=== PATIENT | male | born 1995 | race Caucasian/White ===

== ENCOUNTER 2020-03-09 12:11 | Emergency (ER) | payer SELFPAY ==
[2020-03-09 12:36] VITALS: BP 131/83; PULSE 68; RESP 16; TEMP 36.8; O2SAT 98; BMI 21.2
--- NOTE | 2020-03-09 13:02 | W.ED.ABDPA2 ---
HPI - Abdominal Pain General: Chief Complaint: Abdominal Pain Stated Complaint: poss appendicitis Time Seen by Provider: 03/09/20 13:02 Source: patient Mode of arrival: ambulatory Limitations: no limitations History of Present Illness: HPI narrative: Patient presents with lower abdominal pain radiating into his groin. Patient has a history of hernia repair. Patient also reports some right testicular pain. Patient reports swelling around the right testicle. Patient states he was moving a deep freeze yesterday and strained a lot. Patient has a history of a hernia repair and does not know if he would have we ruptured the hernia or is just sore from moving the freezer unit. elicited complaint: abdominal pain Review of Systems General: Reports: 10 or more systems reviewed and unremarkable except in HPI and below GI: Reports: abdominal pain PFSH ED PFSH: Social History (Updated 03/09/20 @ 11:47 by LEYLA Brothers) Smoking and tobacco status: current every day smoker Alcohol intake: never Physical Exam Const: COMMON NORMALS: no acute distress and patient oriented x3 GENERAL APPEARANCE: cooperative HENMT: COMMON NORMALS: normocephalic and Normal external nose present HEAD & SCALP: normal to inspection and normocephalic NOSE: Normal external nose present MOUTH: Normal oral and palatal mucosa present Eye: GENERAL EYE: appearance normal, both eyes and all related structures Neck/C-Spine: COMMON NORMALS: full ROM Lymph: LYMPHATIC: no lymphadenopathy noted Chest: COMMONS NORMALS: normal inspection of the chest Resp: COMMON NORMALS: normal respiratory effort EFFORT & INSPECTION: Yes able to speak in complete sentences Cardio: COMMON NORMALS: regular rate and regular rhythm RATE: regular rate RHYTHM: regular rhythm GI: AUSCULTATION: Yes normoactive bowel sounds PALPATION: Yes Tenderness to palpation present (GI) (Periumbilical right and left side. None rebound. No guarding.) : COMMON NORMALS: Yes no CVA tenderness BLADDER/KIDNEY EXAM: Yes no CVA tenderness SCROTUM: Yes testes descended bilaterally, Yes Cremasteric reflex present and No scrotal swelling Back/Pelvis: COMMON NORMALS: no CVA tenderness and thoracic and lumbar spine normal to inspection Extremity: COMMON NORMALS: normal to inspection Neuro: COMMON NORMALS: patient oriented x3 and moves all extremities Psych: COMMON NORMALS: mental status grossly normal and cooperative Skin: COMMON NORMALS: no rashes or lesions noted GENERAL SKIN EXAM: no rashes or lesions noted Course Vital Signs: Vital signs: Vital Signs Temperature 98.2 F 03/09/20 12:36 Pulse Rate 68 03/09/20 12:36 Respiratory Rate 16 03/09/20 12:36 Blood Pressure 131/83 03/09/20 12:36 Pulse Oximetry 98 03/09/20 12:36 MDM - Abdominal Pain MDM Narrative: Medical decision making narrative: Patient presents with abdominal pain. On exam abdomen soft with some lower abdomen tenderness. Genital exam was done due to patient's concern of right testicle pain. Notes some abdominal swelling but otherwise normal. Prismatic reflex was intact. Vital signs are normal. Differential diagnosis includes but not limited to appendicitis, hernia, epididymitis, testicular torsion. Laboratory values noted as slight elevation in lipase, normal white blood cell count, BUN of 30. CT exam of abdomen pelvis noted a normal appendix and some small bowel inflammation. Ultrasound of the scrotum noted good testicular flow, small hydrocele to the right testicle, and some epididymal swelling bilaterally. Reviewed exam with patient with recommendations for follow-up regarding small bowel inflammation suggestive of Crohn's, also recommended follow-up with urology for further evaluation of hydrocele if it continues to bother him. Lab Data: Labs: Lab Results 03/09/20 03/09/20 03/09/20 Range/Units 13:37 14:00 14:00 WBC 6.8 (4.0-10.0) 10^3/ uL RBC 5.44 H (4.1-5.3) 10^6/u L Hgb 16.3 (11.7-16.6) g/dL Hct 48.9 (42.0-52.0) % MCV 89.9 (80-94) fL MCH 30.0 (28.0-34.0) pg MCHC 33.3 (30.0-36.0) g/dL RDW 11.8 L (12.1-15.1) % Plt Count 155 (130-400) 10^3/c mm MPV 11.4 H (7.4-10.4) fL Neut % (Auto) 58.8 % Lymph % (Auto) 28.4 % [place] % (Auto) 9.3 % Eos % (Auto) 3.0 % Baso % (Auto) 0.4 % Neut # (Auto) 3.97 (1.8-7.7) 10^3/u L Lymph # (Auto) 1.9 (0.8-4.8) 10^3/u L [place] # (Auto) 0.6 (0.2-0.9) 10^3/u L Eos # (Auto) 0.2 (0.0-0.8) 10^3/u L Baso # (Auto) 0.0 (0.0-0.1) 10^3/u L Nucleated RBC % (a uto) 0 % Nucleated RBCs # 0.0 /100WBC Sodium 137 (136-145) mmol/L Potassium 3.7 (3.5-5.1) mmol/L Chloride 100 (98-107) mmol/L Carbon Dioxide 30 H (22-29) mmol/L Anion Gap 10.7 (5-19) BUN 10 (6-20) mg/dL Creatinine 0.8 (0.7-1.2) mg/dL GFR Calculation 119.8 (90-130) mL/min Glucose 99 (65-115) mg/dL Calculated Osmolal ity 283 L (285-295) mOsm/k g Calcium 9.4 (8.5-10.5) mg/dL Total Bilirubin 0.7 (0.15-1.2) mg/dL AST 15 (0-40) U/L ALT 23 (0-41) U/L Alkaline Phosphata se 74 (40-130) IU/L Total Protein 6.7 (6.6-8.7) g/dL Albumin 4.5 (3.5-5.2) g/dL Globulin 2.2 (1.3-4.6) g/dL Lipase 163 H (13-60) U/L Urine Color Yellow (Yellow) Urine Appearance Clear (CLEAR) Urine pH 7 (5-7) Ur Specific Gravit y 1.005 (1.005-1.030) Urine Protein Neg (Negative) Urine Glucose (UA) Norm (Normal) Urine Ketones Negative (Negative) Urine Blood Neg (Negative) Urine Nitrate Negative (Negative) Urine Bilirubin Neg (Negative) Urine Urobilinogen Norm (Negative) mg/dL Ur Leukocyte Estefania ase Negative (Negative) Discharge Plan Discharge Patient Disposition: Home Clinical Impression: Abdominal pain Qualifiers: Abdominal location: lower abdomen, unspecified Qualified Code(s): R10.30 - Lower abdominal pain, unspecified Condition: Stable Prescriptions: New dicyclomine 10 mg capsule 10 mg PO QID PRN (Reason: abdominal pain) Qty: 30 RF: 0 Discharge Orders: Discharge ED (Routine); Ordered 03/09/20 Ordered By: Layton Dumont Discharge Diet: Advance as tolerated Discharge Activity: Increase activity as tolerated Patient Instructions: Abdominal Pain (ED) Activity Restrictions/Additional Instructions: Drink plenty of fluids. Take medication as directed for discomfort. Activity as tolerated. Follow-up with primary care for recommendations of further evaluation and treatment. Follow-up with urology as needed for evaluation of hydrocele. Return to the emergency department for new concerns. Stand Alone Forms: Work/School Release Coding Level of Care Code ED Labeling Associate for Marcusg Fwd Exam Comprehensive
--- NOTE | 2020-03-09 13:12 | CT_ITS ---
WS: [id number] CT ABDOMEN AND PELVIS WITH CONTRAST HISTORY: RLQ pain, r/o appendicitis TECHNIQUE: Imaging performed of the abdomen and pelvis with IV contrast. Single phase imaging of the abdomen. Coronal and sagittal reformats are submitted. All CT scans at [facility] use at least one of these dose optimization techniques: automated exposure control; mA and/or kV adjustment per patient size (includes targeted exams where dose is matched to clinical indication); or iterativ e reconstruction. IV CONTRAST: Omnipaque 300; 95 mL IV. Oral contrast: No DLP: 211.76 mGy.cm COMPARISON: None available. Lower thorax: Lung bases are clear. Heart is normal size. Small hiatal hernia. Liver/biliary system: Normal size with no intrahepatic dilatation. Gallbladder: Normal. No gallstones or wall thickening. No pericholecystic fluid. Pancreas: Normal. Spleen: Normal. Adrenal glands: Normal. Right kidney: No renal obstruction. Cortical cyst measures 8 mm in the mid kidney. Left kidney: Normal. Aorta: Normal. Lymphadenopathy: None. Free fluid: None. GI tract: Mild hyperemia and fluid distention of the small bowel in the pelvis. Small bowel measures up to 2 cm. There is mild wall thickening and hyperemia involving the distal small bowel extending to the terminal ileum. There is adjacent fibrofatty proliferation in the pelvis. Terminal ileum appears narrowed but not severely stenosed. Normal appendix. Abdominal wall: Unremarkable abdominal wall. No hernia. Pelvis: Nondistended bladder. No free fluid or adenopathy. Bones: Unremarkable. CT/CT abdomen pelvis w con* [id number] IMPRESSION: 1. Normal appendix. 2. Distal small bowel wall hyperemia and fibrofatty proliferation in the pelvi s. Mild soft tissue thickening and narrowing of the terminal ileum. Findings tejada ggesting inflammatory bowel disease such as Crohn's.
--- NOTE | 2020-03-09 13:18 | US_ITS ---
WS: [id number] TESTICULAR ULTRASOUND HISTORY: hx of hernia, right testicular pain COMPARISON: 11/12/2017 TECHNIQUE: Real-time and color Doppler imaging or utilized to perform a testicu lar ultrasound. Right testicle: 4.3 cm x 3.0 cm x 1.7 cm. Normal size and echogenicity. No mass or torsion. Normal color Doppler is present throughout. Systolic and diastolic velocities are both present. Small simple hydrocele. Right epididymis: Normal size epididymis. There is a small spermatocele with a maximum diameter of 2 mm. Engorgement of the pampiniform plexus. Left testicle: 4.2 cm x 2.9 cm x 2.3 cm. Normal size and echogenicity. No mass or torsion. Normal color Doppler is present throughout. Systolic and diastolic velocities are both present. No significant hydrocele. Left epididymis: Small epididymal head cysts or spermatoceles. Mildly prominent pampiniform plexus. No enlargement with Valsalva. US/US scrotum [id number] IMPRESSION: 1. No testicular mass or torsion. 2. Prominent pampiniform plexus but no dilatation with Valsalva. 3. Small bilateral epididymal head cysts or spermatoceles. 4. Small RIGHT hydrocele.
[2020-03-09] MEDS: iohexol 300 mg/mL 100 mL Btl IV (13:45)
[2020-03-09 13:59] LABS: Add Urine Microscopic? NO
[2020-03-09 14:18] LABS: Bilirubin Urine Neg (Negative); Blood Urine Neg (Negative); Glucose Urine UA Norm (Normal); Ketones Urine Negative (Negative); Leukocyte Esterase Urine Negative (Negative); Nitrate Urine Negative (Negative); Protein Urine Neg (Negative); Specific Gravity, Urine 1.005 (1.005-1.030); Urine Appearance Clear (CLEAR); Urine Color Yellow (Yellow); Urobilinogen Urine Norm (Negative); pH Urine 7 (5-7)
[2020-03-09 14:22] LABS: Basophils % 0.4 %; Eosinophils # 0.2 10^3/uL (0.0-0.8); Hematocrit 48.9 % (42.0-52.0); Hemoglobin 16.3 g/dL (11.7-16.6); Lymphocytes # 1.9 10^3/uL (0.8-4.8); Lymphocytes % 28.4 %; Mean Corpuscular HGB Conc 33.3 g/dL (30.0-36.0); Mean Corpuscular Volume 89.9 fL (80-94); Mean Platelet Volume 11.4 fL (7.4-10.4); Monocytes # 0.6 10^3/uL (0.2-0.9); Monocytes % 9.3 %; Neutrophils # 3.97 10^3/uL (1.8-7.7); Neutrophils % 58.8 %; Nucleated Red Blood Cells % 0 %; Platelet Count 155 10^3/cmm (130-400); Red Blood Count 5.44 10^6/uL (4.1-5.3); Red Cell Distribution Width 11.8 % (12.1-15.1); White Blood Count 6.8 10^3/uL (4.0-10.0)
[2020-03-09 14:27] LABS: Alanine Aminotransferase 23 U/L (0-41); Albumin Level 4.5 g/dL (3.5-5.2); Alkaline Phosphatase 74 IU/L (40-130); Anion Gap 10.7 (5-19); Aspartate Amino Transferase 15 U/L (0-40); Blood Urea Nitrogen 10 mg/dL (6-20); Calcium 9.4 mg/dL (8.5-10.5); Carbon Dioxide 30 mmol/L (22-29); Chloride 100 mmol/L (98-107); Globulin 2.2 g/dL (1.3-4.6); Glomerular Filtration Rate 119.8 mL/min (90-130); Glucose 99 mg/dL (65-115); Lipase 163 U/L (13-60); Osmolality Calculated 283 mOsm/kg (285-295); Potassium 3.7 mmol/L (3.5-5.1); Sodium 137 mmol/L (136-145); Total Bilirubin 0.7 mg/dL (0.15-1.2); Total Protein 6.7 g/dL (6.6-8.7)
[2020-03-09] MEDS: dexamethasone 4 mg/mL INJ 8 MG IVP (15:34)
[2020-03-09 15:39] VITALS: BP 124/74; PULSE 68; RESP 18; O2SAT 98
[2020-03-09 15:47] VITALS: BP 124/74; PULSE 68; RESP 18; O2SAT 98
--- NOTE | 2020-03-10 09:29 | DCPLANNER ---
residential property manager had message to speak with patient about getting established with a primary care physician. residential property manager called phone number [phone], unable to speak with patient or leave a voicemail due to patient not accepted calls at this time.
== END 2020-03-09 15:47 | disposition home or self-care (01) ==
PROVIDERS: Emergency Provider Nurse Practitioner Family
DX: R10.30 Lower abdominal pain, unspecified (principal); F17.210 Nicotine dependence, cigarettes, uncomplicated
CPT/HCPCS: 12345; 74177; 76870; 80053; 81003; 83690; 85025; 96374; 99283; J1100; Q9967

== ENCOUNTER 2020-05-14 14:35 | Emergency (ER) | payer SELFPAY ==
--- NOTE | 2020-05-14 14:53 | XRR_ITS ---
PROCEDURE INFORMATION: Exam: XR Abdomen Exam date and time: 05/14/2020 2:54 PM Age: 24 years old Clinical indication: Abdominal pain; Prior surgery; Surgery type: Hernia; Additional info: Abd pain TECHNIQUE: Imaging protocol: XR of the abdomen. Views: Frontal supine view of the abdomen. 1 View. COMPARISON: CT abdomen pelvis w con* [id number] 03/09/2020 1:35 PM FINDINGS: Gastrointestinal tract: Normal. No bowel dilation. Bones/joints: Unremarkable. XR/XR abdomen 1V* [id number] IMPRESSION: No acute findings.
[2020-05-14 15:29] VITALS: BP 135/80; PULSE 55; RESP 18; TEMP 36.8; O2SAT 98; BMI 19.0
[2020-05-14 16:08] VITALS: BP 127/69; PULSE 60; RESP 14; O2SAT 97
[2020-05-14 16:44] LABS: Basophils # 0.1 10^3/uL (0.0-0.1); Basophils % 0.6 %; Eosinophils # 0.2 10^3/uL (0.0-0.8); Eosinophils % 2.4 %; Hemoglobin 16.2 g/dL (11.7-16.6); Lymphocytes # 2.4 10^3/uL (0.8-4.8); Lymphocytes % 28.2 %; Mean Corpuscular HGB Conc 33.8 g/dL (30.0-36.0); Mean Corpuscular Hemoglobin 30.6 pg (28.0-34.0); Mean Corpuscular Volume 90.6 fL (80-94); Mean Platelet Volume 11.3 fL (7.4-10.4); Monocytes # 0.5 10^3/uL (0.2-0.9); Monocytes % 5.9 %; Neutrophils # 5.37 10^3/uL (1.8-7.7); Neutrophils % 62.7 %; Nucleated Red Blood Cells % 0 %; Platelet Count 170 10^3/cmm (130-400); Red Cell Distribution Width 11.9 % (12.1-15.1); White Blood Count 8.6 10^3/uL (4.0-10.0)
[2020-05-14 16:49] LABS: Add Urine Microscopic? NO
[2020-05-14 17:03] LABS: Urine Appearance Clear (CLEAR); Urine Color Yellow (Yellow); pH Urine 8 (5-7)
[2020-05-14 17:04] LABS: Bilirubin Urine Neg (Negative); Blood Urine Neg (Negative); Glucose Urine UA Norm (Normal); Ketones Urine Negative (Negative); Leukocyte Esterase Urine Negative (Negative); Nitrate Urine Negative (Negative); Protein Urine Neg (Negative); Specific Gravity, Urine 1.015 (1.005-1.030); Sulfosalicylic Acid Urine Negative (Negative); Urobilinogen Urine Norm (Negative)
[2020-05-14 17:07] LABS: C Reactive Protein 1.2 mg/L (0.0-4.9)
[2020-05-14 17:08] LABS: Alanine Aminotransferase 17 U/L (0-41); Albumin Level 4.7 g/dL (3.5-5.2); Alkaline Phosphatase 75 IU/L (40-130); Anion Gap 11.6 (5-19); Aspartate Amino Transferase 14 U/L (0-40); Blood Urea Nitrogen 14 mg/dL (6-20); Calcium 9.3 mg/dL (8.5-10.5); Carbon Dioxide 30 mmol/L (22-29); Chloride 103 mmol/L (98-107); Globulin 2.1 g/dL (1.3-4.6); Glomerular Filtration Rate 92.6 mL/min (90-130); Glucose 88 mg/dL (65-115); Lipase 12 U/L (13-60); Osmolality Calculated 292 mOsm/kg (285-295); Potassium 3.6 mmol/L (3.5-5.1); Sodium 141 mmol/L (136-145); Total Bilirubin 0.5 mg/dL (0.15-1.2); Total Protein 6.8 g/dL (6.6-8.7)
--- NOTE | 2020-05-14 17:30 | ED_ITS ---
HPI - Abdominal Pain General: Chief Complaint: Abdominal Pain Stated Complaint: AB PAIN, BLOODY STOOL Time Seen by Provider: 05/14/20 15:45 Source: patient Mode of arrival: ambulatory Limitations: no limitations History of Present Illness: HPI narrative: 24-year-old male patient presents to the emergency department with abdominal pain x2 days. He reports this morning experience blood in his stool x2 episodes. He reports stool was bright red. He reports similar episode of abdominal pain with diarrhea that occurred February 2020; states Crohn's disease was appreciated on CT scan completed at this time. He states was to be referred to a surgeon/specialist due to findings on CT but has not heard from anyone. He reports 2 loose stools today. He reports is mainly here because no one has called him back for follow-up and does not know what to do about his pain. He reports pain is mild today. He reports normal intake of fluids today. MD elicited complaint: abdominal pain Pertinent past history: other (Possible Crohn's) Onset (ago): day(s) (2 days; reports symptoms have persisted on and off x3 months) Pain Consistency: intermittent Severity: mild Quality: cramping and burning Radiation: none Migration to: no migration Exacerbating factors: nothing Relieving factors: nothing Associated Symptoms: Reports change in stool character, GI cramping and hematochezia; Denies bloating, chills, dysuria, fever(s), nausea and vomiting Review of Systems General: Reports: 10 or more systems reviewed and unremarkable except in HPI and below Const: Denies: fever(s), chills, body aches, fatigue, malaise or diaphoresis Eyes: Denies: blurry vision or eye redness ENMT: Denies: throat pain, dental pain or disequilibrium Card: Denies: chest pain, palpitations or irregular heart rhythm Resp: Denies: dyspnea, productive cough, non-productive cough or wheezing GI: Reports: abdominal pain, GI cramping, change in stool character and hematochezia; Denies: nausea, vomiting or bloating : Denies: dysuria Musc: Denies: neck pain, back pain, joint pain, joint warmth or joint stiffness Skin/Breast: Denies: rash or pruritus Neuro: Denies: headache(s), weakness in extremities or behavioral changes Psych: Denies: anxiety or depression Nick/Lymph: Denies: easy bruising PFSH ED PFSH: Social History Smoking and tobacco status: current every day smoker Alcohol intake: never Physical Exam Const: COMMON NORMALS: no acute distress, patient oriented x3, healthy appearing and alert GENERAL APPEARANCE: cooperative, comfortable and well hydrated HENMT: COMMON NORMALS: normocephalic, Normal external nose present and moist oral mucous membranes HEAD & SCALP: normocephalic NOSE: Normal external nose present Eye: COMMON NORMALS: Equal, round and reactive pupils present and EOMs intact bilaterally GENERAL EYE: appearance normal, both eyes and all related structures PUPIL: Yes Equal, round and reactive pupils present Neck/C-Spine: COMMON NORMALS: full ROM and no lymphadenopathy GENERAL: Yes normal visual inspection and Yes trachea midline CERVICAL SPINE: Yes cervical ROM normal Lymph: LYMPHATIC: no lymphadenopathy noted Chest: COMMONS NORMALS: normal inspection of the chest Resp: COMMON NORMALS: normal respiratory effort and clear to auscultation bilaterally AUSCULTATION: clear to auscultation bilaterally Cardio: COMMON NORMALS: regular rhythm, S1 normal heart sound present and S2 normal heart sound present RHYTHM: regular rhythm HEART SOUNDS: S1 normal heart sound present and S2 normal heart sound present GI: COMMON NORMALS: Normal to inspection, nondistended, normoactive bowel sounds present, Soft to palpation and non-tender INSPECTION: Yes normal to inspection, No abdominal wall ecchymosis, No abdominal distension, No central obesity and No visible herniation AUSCULTATION: Yes normoactive bowel sounds PALPATION: Yes Soft to palpation, No Firmness to palpation present (GI), Yes Tenderness to palpation present (GI) (Periumbilical), No Rigid due to palpation and No Abdominal wall crepitus present : COMMON NORMALS: Yes no CVA tenderness BLADDER/KIDNEY EXAM: Yes no CVA tenderness Back/Pelvis: COMMON NORMALS: no CVA tenderness, thoracic and lumbar spine normal to inspection, no thoracic nor lumbar tenderness, thoraco-lumbar ROM normal and straight leg raise negative bilaterally Extremity: COMMON NORMALS: normal to inspection, full ROM, capillary refill normal, no clubbing, cyanosis or edema and no pedal edema GENERAL: Yes normal exam except as noted Neuro: COMMON NORMALS: patient oriented x3 and no focal motor deficits SENSORIUM/ORIENTATION: Yes alert Psych: COMMON NORMALS: mental status grossly normal, Normal thought process present, cooperative, normal affect, speech normal and activity/motor behavior normal APPEARANCE: Yes grossly normal ATTITUDE: Yes calm ACTIVITY/MOTOR BEHAVIOR: Yes appropriate eye contact SPEECH: Yes normal speech THOUGHT PROCESS: Normal thought process present Skin: COMMON NORMALS: no rashes or lesions noted and turgor normal GENERAL SKIN EXAM: no rashes or lesions noted and turgor normal Course Vital Signs: Vital signs: Vital Signs Temperature 98.2 F 05/14/20 15:29 Pulse Rate 60 05/14/20 16:08 Respiratory Rate 14 05/14/20 16:08 Blood Pressure 127/69 05/14/20 16:08 Pulse Oximetry 97 05/14/20 16:08 MDM - Abdominal Pain MDM Narrative: Medical decision making narrative: 24-year-old male patient presents to the emergency department with continued abdominal pain on and off x3 months. Was previously evaluated in the ED for similar symptoms as he experiences today, CT appreciated possible Crohn's, no follow-up completed. He has not exhibited nausea vomiting, Hemoccult stool was negative today. CRP and ESR within normal limits, CBC lipase comprehensive panel without acute abnormalities. Reglan was administered here in the ED along with Pepcid. Patient had reaction to Reglan, developed anxiety with request to immediately leave. Patient was advised to list Reglan as an allergy due to adverse reaction. Verbalized understanding. He declined need for pain medication, certified social workers in health care referral to surgical services for colonoscopy. Differential Diagnosis: Differential diagnosis abdominal pain: Likely abdominal pain, calculus of kidney, constipation and small bowel obstruction Lab Data: Labs: Lab Results 05/14/20 05/14/20 05/14/20 Range/Units 16:15 16:15 16:15 WBC 8.6 (4.0-10.0) 10^3/ uL RBC 5.30 (4.1-5.3) 10^6/u L Hgb 16.2 (11.7-16.6) g/dL Hct 48.0 (42.0-52.0) % MCV 90.6 (80-94) fL MCH 30.6 (28.0-34.0) pg MCHC 33.8 (30.0-36.0) g/dL RDW 11.9 L (12.1-15.1) % Plt Count 170 (130-400) 10^3/c mm MPV 11.3 H (7.4-10.4) fL Neut % (Auto) 62.7 % Lymph % (Auto) 28.2 % [place] % (Auto) 5.9 % Eos % (Auto) 2.4 % Baso % (Auto) 0.6 % Neut # (Auto) 5.37 (1.8-7.7) 10^3/u L Lymph # (Auto) 2.4 (0.8-4.8) 10^3/u L [place] # (Auto) 0.5 (0.2-0.9) 10^3/u L Eos # (Auto) 0.2 (0.0-0.8) 10^3/u L Baso # (Auto) 0.1 (0.0-0.1) 10^3/u L Nucleated RBC % (a uto) 0 % Nucleated RBCs # 0.0 /100WBC ESR 2 (0-10) mm/hr Sodium 141 (136-145) mmol/L Potassium 3.6 (3.5-5.1) mmol/L Chloride 103 (98-107) mmol/L Carbon Dioxide 30 H (22-29) mmol/L Anion Gap 11.6 (5-19) BUN 14 (6-20) mg/dL Creatinine 1.0 (0.7-1.2) mg/dL GFR Calculation 92.6 (90-130) mL/min Glucose 88 (65-115) mg/dL Calculated Osmolal ity 292 (285-295) mOsm/k g Calcium 9.3 (8.5-10.5) mg/dL Total Bilirubin 0.5 (0.15-1.2) mg/dL AST 14 (0-40) U/L ALT 17 (0-41) U/L Alkaline Phosphata se 75 (40-130) IU/L C-Reactive Protein (0.0-4.9) mg/L Total Protein 6.8 (6.6-8.7) g/dL Albumin 4.7 (3.5-5.2) g/dL Globulin 2.1 (1.3-4.6) g/dL Lipase 12 L (13-60) U/L Urine Color (Yellow) Urine Appearance (CLEAR) Urine pH (5-7) Ur Specific Gravit y (1.005-1.030) Urine Protein (Negative) Urine Glucose (UA) (Normal) Urine Ketones (Negative) Urine Blood (Negative) Urine Nitrate (Negative) Urine Bilirubin (Negative) Prot Sulfosalicyli c Acd (Negative) Urine Urobilinogen (Negative) mg/dL Ur Leukocyte Estefania ase (Negative) 05/14/20 05/14/20 Range/Units 16:15 16:42 WBC (4.0-10.0) 10^3/ uL RBC (4.1-5.3) 10^6/u L Hgb (11.7-16.6) g/dL Hct (42.0-52.0) % MCV (80-94) fL MCH (28.0-34.0) pg MCHC (30.0-36.0) g/dL RDW (12.1-15.1) % Plt Count (130-400) 10^3/c mm MPV (7.4-10.4) fL Neut % (Auto) % Lymph % (Auto) % [place] % (Auto) % Eos % (Auto) % Baso % (Auto) % Neut # (Auto) (1.8-7.7) 10^3/u L Lymph # (Auto) (0.8-4.8) 10^3/u L [place] # (Auto) (0.2-0.9) 10^3/u L Eos # (Auto) (0.0-0.8) 10^3/u L Baso # (Auto) (0.0-0.1) 10^3/u L Nucleated RBC % (a uto) % Nucleated RBCs # /100WBC ESR (0-10) mm/hr Sodium (136-145) mmol/L Potassium (3.5-5.1) mmol/L Chloride (98-107) mmol/L Carbon Dioxide (22-29) mmol/L Anion Gap (5-19) BUN (6-20) mg/dL Creatinine (0.7-1.2) mg/dL GFR Calculation (90-130) mL/min Glucose (65-115) mg/dL Calculated Osmolal ity (285-295) mOsm/k g Calcium (8.5-10.5) mg/dL Total Bilirubin (0.15-1.2) mg/dL AST (0-40) U/L ALT (0-41) U/L Alkaline Phosphata se (40-130) IU/L C-Reactive Protein 1.2 (0.0-4.9) mg/L Total Protein (6.6-8.7) g/dL Albumin (3.5-5.2) g/dL Globulin (1.3-4.6) g/dL Lipase (13-60) U/L Urine Color Yellow (Yellow) Urine Appearance Clear (CLEAR) Urine pH 8 H (5-7) Ur Specific Gravit y 1.015 (1.005-1.030) Urine Protein Neg (Negative) Urine Glucose (UA) Norm (Normal) Urine Ketones Negative (Negative) Urine Blood Neg (Negative) Urine Nitrate Negative (Negative) Urine Bilirubin Neg (Negative) Prot Sulfosalicyli c Acd Negative (Negative) Urine Urobilinogen Norm (Negative) mg/dL Ur Leukocyte Estefania ase Negative (Negative) Imaging Data ^: Xray Ortho: Radiologist's impression: [facility] [address] XRay Report Signed Patient: Babar Toledo AUnmusa #: [id number] : 1995Acct#:[id number] Age/Sex: MAD Date: 05/14/20 Loc: [facility]/Bed: Attending Dr: Ordering Provider/Ordering MD: Cookie Lopez Date of Service: 05/14/20 Procedure(s): XR abdomen 1V* [id number] Accession Number(s): [id number] Report Number: [id number] PROCEDURE INFORMATION: Exam: XR Abdomen Exam date and time: 05/14/2020 2:54 PM Age: 24 years old Clinical indication: Abdominal pain; Prior surgery; Surgery type: Hernia; Additional info: Abd pain TECHNIQUE: Imaging protocol: XR of the abdomen. Views: Frontal supine view of the abdomen. 1 View. COMPARISON: CT abdomen pelvis w con* [id number] 03/09/2020 1:35 PM FINDINGS: Gastrointestinal tract: Normal. No bowel dilation. Bones/joints: Unremarkable. XR/XR abdomen 1V* [id number] IMPRESSION: No acute findings. Dictated By:Yao Avalos Signed By:Tonia Avalos Date/Time:05/14/201701 DD/ 99 Discharge Plan Discharge Patient Disposition: Home Clinical Impression: Abdominal pain Qualifiers: Abdominal location: periumbilical Qualified Code(s): R10.33 - Periumbilical pain Crohn disease Qualifiers: Gastrointestinal tract location: small and large intestine Digestive disease complication type: without complication Qualified Code(s): K50.80 - Crohn's disease of both small and large intestine without complications Condition: Stable Prescriptions: New Pepcid 20 mg tablet 20 mg PO BID Qty: 20 RF: 0 Discharge Orders: Discharge ED (Routine); Ordered 05/14/20 Ordered By: Cookie Lopez Discharge Activity: Resume usual activity Patient Instructions: [place] Diet - Adult, Diet for Ulcers and Gastritis (ED), Abdominal Pain (ED), Opioid Safety Activity Restrictions/Additional Instructions: social services have been contacted to assist with appointment with Dr. Howard for colonoscopy Return to the emergency department if you develop worsening symptoms such as continued blood in your stool, continued abdominal pain or fever/chills. Take Pepcid twice daily prior to meals. Avoid spicy greasy fried fatty foods, may take [id number] Lomotil as needed for diarrhea. List Reglan as allergy as adverse reaction occurred Coding Level of Care Code ED Social Science Analyst for Mikaela Concepcion
[2020-05-14 17:47] LABS: Erythrocyte Sedimentation Rate 2 mm/hr (0-10)
[2020-05-14] MEDS: ondansetron 2 mg/ML SDV 2 mL 4 MG IVP (18:00)
[2020-05-14] MEDS: metoclopramide 5 mg/mL SDV 2 mL 10 MG IVP (18:01)
[2020-05-14] MEDS: lactated ringers 1,000 ML 999 ML IV (18:01)
--- NOTE | 2020-05-14 22:33 | PC.NURSE ---
IV push drugs documented by Jose Gupta were pushed by myself
--- NOTE | 2020-05-16 10:08 | DCPLANNER ---
manager strategic marketing had message to schedule a follow up appointment for patient with general surgery. manager strategic marketing emailed patients information to both Tashia and Deneen at [facility] General Surgery. Patients information will be printed and reviewed. Clinic will call patient with appointment information.
--- NOTE | 2020-05-18 13:39 | DCPLANNER ---
Addendum entered by Lizzie Gallardo 06/07/20 09:44: Patient had a follow up appointment scheduled for 05.30.[address] Howard - patient did attend the appointment. Original Note: retail client manager received email from [facility] General Surgery - stating that patient was not accepting calls at this time - a letter was sent to patient about scheduling an appointment.
== END 2020-05-14 18:46 | disposition home or self-care (01) ==
PROVIDERS: Emergency Provider Nurse Practitioner Family
DX: K50.80 Crohn's disease of both small and large intestine without complications (principal); F17.210 Nicotine dependence, cigarettes, uncomplicated
CPT/HCPCS: 74018; 80053; 81003; 83690; 85025; 85651; 86140; 96361; 96374; 96375; 99283; J2405; J2765

== ENCOUNTER 2020-05-27 03:18 | Emergency (ER) | payer SELFPAY ==
[2020-05-27 03:32] VITALS: BP 115/82; PULSE 70; RESP 18; TEMP 36.7; O2SAT 99; BMI 19.0
--- NOTE | 2020-05-27 03:43 | ED_ITS ---
HPI - Extremity Problem General: Chief complaint: Extremity Injury, Upper Stated complaint: left arm numbness Time Seen by Provider: 05/27/20 03:19 Source: patient Mode of arrival: ambulatory Limitations: no limitations History of Present Illness: HPI Narrative: 24-year-old male states he was chopping wood 2 to 3 days ago and has been carrying a lot of weight as well. He states he been having left-sided neck pain that goes down his arm has been worsening. He states is much worse with movement and palpation. States pain is sharp and rates it a 7 out of 10. He denies any weakness. Denies any midline neck pain. Associated symptoms: Deny chest pain, fever(s) or rash Review of Systems Const: Denies: fever(s), chills, body aches or change in appetite Eyes: Denies: blurry vision or eye discomfort ENMT: Denies: throat pain or dental pain Card: Denies: chest pain Resp: Denies: dyspnea GI: Denies: abdominal pain, nausea, vomiting or diarrhea : Denies: dysuria Musc: Reports: neck pain Skin/Breast: Denies: rash Neuro: Denies: headache(s) Psych: Denies: depression Nick/Lymph: Denies: easy bruising All/Imm: Denies: urticaria PFSH ED PFSH: Social History Smoking and tobacco status: current every day smoker Alcohol intake: never Physical Exam Const: COMMON NORMALS: no acute distress, patient oriented x3 and healthy appearing HENMT: COMMON NORMALS: normocephalic and atraumatic HEAD & SCALP: normocephalic and atraumatic Eye: COMMON NORMALS: Equal, round and reactive pupils present and EOMs intact bilaterally PUPIL: Yes Equal, round and reactive pupils present Neck/C-Spine: OTHER: Tender over left lateral neck does have spasms to the trapezius muscle. Distal pulses intact. Pain is worse when he tries to lift his arm or look to the left Chest: COMMONS NORMALS: normal inspection of the chest and normal palpation of entire chest wall Resp: COMMON NORMALS: normal respiratory effort, No retractions, No use of accessory muscles and clear to auscultation bilaterally AUSCULTATION: clear to auscultation bilaterally Cardio: COMMON NORMALS: regular rate, regular rhythm and No murmurs present (Cardio) RATE: regular rate RHYTHM: regular rhythm GI: COMMON NORMALS: Normal to inspection, nondistended, normoactive bowel sounds present, Soft to palpation, non-tender and no masses PALPATION: Yes Soft to palpation Extremity: COMMON NORMALS: normal to inspection and full ROM Neuro: COMMON NORMALS: patient oriented x3, moves all extremities and no focal motor deficits Psych: COMMON NORMALS: mental status grossly normal, Normal thought process present and cooperative THOUGHT PROCESS: Normal thought process present Skin: COMMON NORMALS: no rashes or lesions noted and no wounds GENERAL SKIN EXAM: no rashes or lesions noted Course Vital Signs: Vital signs: Vital Signs Temperature 98.1 F 05/27/20 03:32 Pulse Rate 70 05/27/20 03:32 Respiratory Rate 18 05/27/20 03:32 Blood Pressure 115/82 05/27/20 03:32 Pulse Oximetry 99 05/27/20 03:32 MDM - Extremity (Nontraumatic) MDM Narrative: Medical decision making narrative: Patient presents here with a neck strain along with muscle spasms. He is to rest ice we will place him on pain meds along with muscle relaxant. He is to follow-up his PCP and return if worsening. Discharge Plan Discharge Patient Disposition: Home Clinical Impression: Cervical strain Qualifiers: Encounter type: initial encounter Qualified Code(s): S16.1XXA - Strain of muscle, fascia and tendon at neck level, initial encounter Condition: Stable Prescriptions: [place] 5-325 mg tablet 1 tab PO Q6H PRN (Reason: pain) Qty: 10 RF: 0 Robaxin-750 750 mg tablet 750 mg PO Q6H Qty: 30 RF: 0 Naprosyn 500 mg tablet 500 mg PO BID PRN (Reason: pain) Qty: 20 RF: 0 No Action Pepcid 20 mg tablet 20 mg PO BID Qty: 20 RF: 0 Discharge Orders: Discharge ED (Routine); Ordered 05/27/20 Ordered By: Renata Lynch Referrals: Loco Whiting NP [Primary Care Provider] - 1-3 days Discharge Diet: Advance as tolerated Discharge Activity: Resume usual activity Patient Instructions: Cervical Sprain (ED), Muscle Spasm (ED), Opioid Safety Coding Level of Care Code ED Science Writer for Marcusg Carlene
[2020-05-27 03:55] VITALS: BP 127/77; PULSE 66; RESP 16; O2SAT 96
[2020-05-27] MEDS: HYDROcodone-acetaminophen 5-325 mg Tablet 1 TAB PO (04:01)
[2020-05-27] MEDS: methocarbamol 750 mg Tablet PO (04:02)
[2020-05-27 04:12] VITALS: BP 127/77; PULSE 66; RESP 16; TEMP 36.7; O2SAT 96
--- NOTE | 2020-06-07 09:43 | DCPLANNER ---
production service manager referred patient to [facility] General Surgery - had a followup appointment scheduled for 05.30.20 with - patient did attend the appointment.
== END 2020-05-27 04:13 | disposition home or self-care (01) ==
PROVIDERS: Emergency Provider Emergency Medicine; PCP Nurse Practitioner Family
DX: S16.1XXA Strain of muscle, fascia and tendon at neck level, initial encounter (principal); F17.210 Nicotine dependence, cigarettes, uncomplicated; X50.0XXA Overexertion from strenuous movement or load, initial encounter
CPT/HCPCS: 99283

== ENCOUNTER → 2020-06-17 11:32 | Outpatient (BNVA) | payer OTHER, SELFPAY | PROVIDERS: PCP Nurse Practitioner Family; Visit Provider Surgery | DX: Z20.822 Contact with and (suspected) exposure to COVID-19 (principal) | CPT/HCPCS: 87635 ==

== ENCOUNTER 2020-06-22 07:50 | Day surgery (SDC) | payer SELFPAY ==
[2020-06-20 14:01] VITALS: BMI 19.2
[2020-06-22 08:14] VITALS: BP 108/81; PULSE 58; RESP 16; TEMP 36.3; O2SAT 100
[2020-06-22] MEDS: sodium chloride 0.9% 1,000 ML 30 ML IV (08:17)
--- NOTE | 2020-06-22 09:08 | W.PM.OPSUD ---
Surgery/Procedure H&P Update DATE OF PROCEDURE: June 22, 2020 DATE H&P PERFORMED: 05/30/20 H&P UPDATE INFORMATION: I have reviewed H&P completed within last 30 days, I have examined patient prior to procedure and No changes to prior documentation PREOP DIAGNOSIS: Abdominal pain/rule out Crohn's disease PRIMARY INDICATION FOR PROCEDURE: The same PLANNED PROCEDURE: Operation Date: 06/22/20 07:30 Proposed Procedures p EGD/colon [id number] R10.9 K92.1(Not Applicable) - Juan Francisco Howard MD s Colonoscopy(Not Applicable) - Juan Francisco Howard MD
--- NOTE | 2020-06-22 09:13 | ANES.PREANE2 ---
Pre-Anesthetic Assessment Pre-Anesthetic Assessment: Height/Weight: Height 1.75 m Weight 58.967 kg Temp Pulse Resp BP Pulse Ox 97.3 F L 58 L 16 108/81 100 06/22/20 08:14 06/22/20 08:14 06/22/20 08:14 06/22/20 08:14 06/22/20 08:14 Preop Diagnosis: Abdominal pain/rule out Crohn's disease Proposed Procedure: Operation Date: 06/22/20 07:30 Proposed Procedures p EGD/colon [id number] R10.9 K92.1(Not Applicable) - Juan Francisco Howard MD s Colonoscopy(Not Applicable) - Juan Francisco Howard MD Familial anesthetic complications: none Was Beta Don taken within 24 hours: N/A Was Clonidine taken within 24 hours: N/A Last intake: Intake Last Liquid Date 06/21/20 Last Solid Date 06/20/20 Last Intake: 22:00 Social: Social History: Tobacco and No alcohol Pack years: 1ppd Comment: 13yrs Exam: Pre-Anes Outpt Exam: alert, oriented x 3, clear to auscultation bilaterally and regular rate & rhythm Airway: Submandibular: WNL Cervical ROM: WNL MP: 1 Dentition: Full Pulmonary: Pulmonary: None reported CV/HEM: CV/HEM: None reported : : None reported Hepatic: Hepatic: None reported GI: GI: GERD Metabolic: Metabolic: None reported Musc/skel: Musc/skel: None reported Neuropsych: Neuropsych: Anxiety, Bipolar and Depression Anesthetic Plan: ASA status: 2 Anesthesia: MAC Meds/Allergies Current Medications: Current Medications Generic Name Dose Route Start Last Admin Trade Name Ananthq PRN Reason Stop Dose Admin Sodium Chloride 1,000 mls @ 30 ml s/hr 06/22/20 08:15 06/22/20 08:17 Sodium Chloride 0.9% IV 06/23/20 08:14 30 mls/hr .Q24H ZEINAB Administration PFSH Anesthesia PFSH: Social History Smoking and tobacco status: current every day smoker Alcohol intake: never Data Anesthesia Cardiac Studies: No Data to Display
[2020-06-22 10:06] VITALS: BP 109/70; PULSE 50; RESP 18; TEMP 36.1; O2SAT 99
--- NOTE | 2020-06-22 10:16 | ANE.PACU2 ---
Inpatient post-anesthesia follow up: Airway intact: Yes Vital signs: Temperature 97 F Pulse Rate 50 Respiratory Rate 18 Blood Pressure 109/70 Pulse Oximetry 99 Oxygen Delivery Me thod Room Air Oxygen Flow Rate Fraction of Inspir ed Oxygen Hydration adequate: Yes Nausea and vomiting: No Pain level: 1 Mental status: Baseline
[2020-06-22 10:35] VITALS: BP 120/78; PULSE 54; RESP 18; O2SAT 95
== END 2020-06-22 10:35 | disposition home or self-care (01) ==
PROVIDERS: PCP Nurse Practitioner Family; Visit Provider Surgery
PROC: 0DJD8ZZ Inspection of Lower Intestinal Tract, Via Natural or Artificial Opening Endoscopic (ICD-10-PCS; CPT 45378; 2020-06-22 07:30)
PROC: 0DJ08ZZ Inspection of Upper Intestinal Tract, Via Natural or Artificial Opening Endoscopic (ICD-10-PCS; CPT 43235; 2020-06-22 07:30)
DX: R10.9 Unspecified abdominal pain (principal); F17.210 Nicotine dependence, cigarettes, uncomplicated; K21.9 Gastro-esophageal reflux disease without esophagitis
CPT/HCPCS: 43239; 45380; 88305; 96360; 96361; J2704; J7030

== ENCOUNTER 2021-04-13 10:21 | Emergency (ER) | payer SELFPAY ==
[2021-04-13 10:31] VITALS: BP 139/90; PULSE 93; RESP 18; TEMP 36.7; O2SAT 99; BMI 22.1
--- NOTE | 2021-04-13 10:48 | ECG_ITS ---
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 Measurements Intervals [place] Rate: 85 P: 58 WV: 159 QRS: 99 QRSD: 101 T: 53 QT: 332 QTc: 395 Interpretive Statements SINUS RHYTHM BORDERLINE RIGHT AXIS DEVIATION [QRS AXIS > 90] ST ELEVATION, PROBABLY EARLY REPOLARIZATION [ST ELEVATION WITH NORMALLY INFLECTED T-WAVE] No previous ECG available for comparison Electronically Signed On 04-13-2021 22:04:54 ELEMENTARY SECRETARY by Olena Mahoney M.D. [email or web address] [email or web address] [email or web address] lady of mercy [id number]
--- NOTE | 2021-04-13 10:48 | XR_ITS ---
WS: [id number] PORTABLE CHEST HISTORY: chest pain COMPARISON: 04/08/2013 Lungs are clear and well expanded. No pleural effusion or pneumothorax. Cardiac size: Normal. Mediastinum/Aorta: Normal mediastinum. No osseous abnormality seen. XR/XR chest 1V portable [id number] IMPRESSION: Unremarkable portable chest.
[2021-04-13 11:31] LABS: Basophils # 0.1 10^3/uL (0.0-0.1); Basophils % 0.4 %; Eosinophils # 0.4 10^3/uL (0.0-0.8); Eosinophils % 3.2 %; Hematocrit 50.5 % (42.0-52.0); Hemoglobin 16.9 g/dL (11.7-16.6); Lymphocytes # 2.1 10^3/uL (0.8-4.8); Mean Corpuscular HGB Conc 33.5 g/dL (30.0-36.0); Mean Corpuscular Hemoglobin 31.2 pg (28.0-34.0); Mean Corpuscular Volume 93.2 fl (80-94); Mean Platelet Volume 11.3 fL (7.4-10.4); Monocytes # 0.9 10^3/uL (0.2-0.9); Monocytes % 8.2 %; Neutrophils # 7.94 10^3/uL (1.8-7.7); Neutrophils % 69.6 %; Nucleated Red Blood Cells % 0 %; Platelet Count 170 10^3/cmm (130-400); Red Blood Count 5.42 10^6/uL (4.1-5.3); Red Cell Distribution Width 12.6 % (12.1-15.1); White Blood Count 11.4 10^3/uL (4.0-10.0)
[2021-04-13 11:40] LABS: Troponin(5th) Baseline 6 ng/L (0-15)
[2021-04-13 11:43] LABS: Alanine Aminotransferase 64 U/L (0-41); Albumin Level 4.8 g/dL (3.5-5.2); Alkaline Phosphatase 72 IU/L (40-130); Anion Gap 17.4 (5-19); Aspartate Amino Transferase 28 U/L (0-40); Blood Urea Nitrogen 9 mg/dL (6-20); Calcium 9.8 mg/dL (8.5-10.5); Carbon Dioxide 25 mmol/L (22-29); Chloride 100 mmol/L (98-107); Globulin 2.2 g/dL (1.3-4.6); Glomerular Filtration Rate 165.5 mL/min (90-130); Glucose 107 mg/dL (65-115); Osmolality Calculated 285 mOsm/kg (285-295); Potassium 4.4 mmol/L (3.5-5.1); Sodium 138 mmol/L (136-145); Total Bilirubin 0.5 mg/dL (0.15-1.2)
--- NOTE | 2021-04-13 12:46 | W.ED.CHESTPA ---
Documented by User: DEYSI Rodas 04/13/21 13:14 HPI - Chest Pain General: Chief Complaint: Chest Pain Stated Complaint: pcp sent for cp Time Seen by Provider: 04/13/21 12:44 Source: patient Mode of arrival: ambulatory Limitations: no limitations History of Present Illness: Patient is a 25-year-old male who presents to ED today with a complaint of chest pain. 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 He states pain seemed to be intermittent throughout the day and evening. He was able to sleep well last night without discomfort. He states he woke up this morning and pain returned and has been more persistent prompting his ED evaluation. He states pain is located to the right side of his chest and the right side of his back underneath his shoulder blade. He states pain seems to be worse with movement and range of motion of his right shoulder. He denies any known injury or trauma. He denies shortness of breath or difficulty breathing. MD complaint: chest pain Onset (ago): day(s) (yesterday) Timing of current episode: episodic Prior episodes: No Pain location: right chest and other (back) Relieving factors: rest and remaining still Exacerbating factors: movement Associated symptoms: Reports no associated symptoms; Deny abdominal pain, dyspnea, fever(s), palpitations or syncope Treatment prior to arrival: none Risk Factors: Coronary artery disease risk factors: smoking history Thoracic aortic dissection risk factors: none Review of Systems Const: Denies: fever(s), chills, body aches, fatigue or malaise Eyes: Denies: change in vision or blurry vision Card: Reports: chest pain; Denies: palpitations, irregular heart rhythm, edema, swelling of feet/ankles, lightheadedness, syncope, pre-syncope, dyspnea on exertion, orthopnea, leg pain with exertion or acrocyanosis Resp: Denies: dyspnea, productive cough, non-productive cough, wheezing, hemoptysis or chest congestion GI: Denies: abdominal pain Musc: Reports: back pain; Denies: neck pain, extremity pain, extremity swelling, joint pain or joint swelling Skin/Breast: Denies: rash Neuro: Denies: headache(s), numbness in extremities, weakness in extremities, sensory changes or dizziness PFS ED PFSH: Social History (Reviewed 04/13/21 @ 13:10 by NATALIYA Rodas Smoking and tobacco status: current every day smoker Alcohol intake: never Physical Exam Const: COMMON NORMALS: no acute distress, average body habitus, patient oriented x3, no limitations, healthy appearing, alert and well nourished GENERAL APPEARANCE: cooperative Neck/C-Spine: COMMON NORMALS: full ROM CERVICAL SPINE: Yes cervical ROM normal, No pain with cervical ROM, No Cervical spine tenderness and No Paracervical muscle tenderness Chest: COMMONS NORMALS: normal inspection of the chest OTHER: TTP R anterior/posterior chest wall Resp: COMMON NORMALS: normal respiratory effort and clear to auscultation bilaterally EFFORT & INSPECTION: Yes able to speak in complete sentences AUSCULTATION: clear to auscultation bilaterally Cardio: COMMON NORMALS: regular rate and regular rhythm RATE: regular rate RHYTHM: regular rhythm GI: COMMON NORMALS: Normal to inspection, nondistended, normoactive bowel sounds present, Soft to palpation, non-tender, No hepatosplenomegaly present and no masses PALPATION: Yes Soft to palpation and Yes No hepatosplenomegaly present : COMMON NORMALS: Yes no CVA tenderness BLADDER/KIDNEY EXAM: Yes no CVA tenderness Back/Pelvis: COMMON NORMALS: no CVA tenderness, thoracic and lumbar spine normal to inspection, no thoracic nor lumbar tenderness and thoraco-lumbar ROM normal OTHER: TTP just below inferior tip of scapula; pain with ROM of R shoulder Extremity: COMMON NORMALS: normal to inspection and full ROM GENERAL: Yes normal exam except as noted Neuro: COMMON NORMALS: patient oriented x3, CN's II-XII intact bilaterally, moves all extremities, no focal motor deficits and no sensory deficits noted SENSORIUM/ORIENTATION: Yes alert Skin: COMMON NORMALS: no rashes or lesions noted GENERAL SKIN EXAM: no rashes or lesions noted Course Vital Signs: Vital signs: Vital Signs Temperature 98.0 F 04/13/21 10:31 Pulse Rate 67 04/13/21 13:05 Respiratory Rate 16 04/13/21 13:05 Blood Pressure 113/72 04/13/21 13:05 Pulse Oximetry 99 04/13/21 13:05 MDM - Chest Pain Medical Decision Making Patient here with intermittent right-sided chest pains that began yesterday while at work. Pain is easily reproducible on physical exam. Lab work obtained in triage including baseline troponin is unremarkable. His EKG shows no ischemic findings. CXR is normal. At this time recommended conservative management and follow-up with PCP if symptoms persist. Lab Data I reviewed the patient's lab results. : 04/13/21 10:38 04/13/21 10:38 Radiology Impressions Chest X-Ray 04/13/21 10:48 IMPRESSION: Unremarkable portable chest. Laboratory Results WBC 11.4 10^3/uL (4.0-10.0) H 04/13/21 10:38 RBC 5.42 10^6/uL (4.1-5.3) H 04/13/21 10:38 Hgb 16.9 g/dL (11.7-16.6) H 04/13/21 10:38 Hct 50.5 % (42.0-52.0) 04/13/21 10:38 MCV 93.2 fl (80-94) 04/13/21 10:38 MCH 31.2 pg (28.0-34.0) 04/13/21 10:38 MCHC 33.5 g/dL (30.0-36.0) 04/13/21 10:38 RDW 12.6 % (12.1-15.1) 04/13/21 10:38 Plt Count 170 10^3/cmm (130-400) 04/13/21 10:38 MPV 11.3 fL (7.4-10.4) H 04/13/21 10:38 Neut % (Auto) 69.6 % 04/13/21 10:38 Lymph % (Auto) 18.0 % 04/13/21 10:38 Mcmin[place] % (Auto) 8.2 % 04/13/21 10:38 Eos % (Auto) 3.2 % 04/13/21 10:38 Baso % (Auto) 0.4 % 04/13/21 10:38 Neut # (Auto) 7.94 10^3/uL (1.8-7.7) H 04/13/21 10:38 Lymph # (Auto) 2.1 10^3/uL (0.8-4.8) 04/13/21 10:38 Mcminn # (Auto) 0.9 10^3/uL (0.2-0.9) 04/13/21 10:38 Eos # (Auto) 0.4 10^3/uL (0.0-0.8) 04/13/21 10:38 Baso # (Auto) 0.1 10^3/uL (0.0-0.1) 04/13/21 10:38 Nucleated RBC % (auto) 0 % 04/13/21 10:38 Nucleated RBCs # 0.0 /100WBC 04/13/21 10:38 Sodium 138 mmol/L (136-145) 04/13/21 10:38 Potassium 4.4 mmol/L (3.5-5.1) 04/13/21 10:38 Chloride 100 mmol/L (98-107) 04/13/21 10:38 Carbon Dioxide 25 mmol/L (22-29) 04/13/21 10:38 Anion Gap 17.4 (5-19) 04/13/21 10:38 BUN 9 mg/dL (6-20) 04/13/21 10:38 Creatinine 0.6 mg/dL (0.7-1.2) L 04/13/21 10:38 GFR Calculation 165.5 mL/min (90-130) H 04/13/21 10:38 Glucose 107 mg/dL (65-115) 04/13/21 10:38 Calculated Osmolality 285 mOsm/kg (285-295) 04/13/21 10:38 Calcium 9.8 mg/dL (8.5-10.5) 04/13/21 10:38 Total Bilirubin 0.5 mg/dL (0.15-1.2) 04/13/21 10:38 AST 28 U/L (0-40) 04/13/21 10:38 ALT 64 U/L (0-41) H 04/13/21 10:38 Alkaline Phosphatase 72 IU/L (40-130) 04/13/21 10:38 Troponin T Baseline 6 ng/L (0-15) 04/13/21 10:38 Troponin T 120 Minute 6.00 ng/L (0-15) 04/13/21 12:35 Delta Troponin T 0 ABS# (0-10) 04/13/21 12:35 Total Protein 7.0 g/dL (6.6-8.7) 04/13/21 10:38 Albumin 4.8 g/dL (3.5-5.2) 04/13/21 10:38 Globulin 2.2 g/dL (1.3-4.6) 04/13/21 10:38 EKG Data EKG 1: EKG interpretation date: 04/13/21 EKG interpretation time: 10:44 Interpretation: Sinus rhythm Rate 85 ST elevation secondary to early repolarization No findings consistent with ischemia Also signed off by Dr. Rico Discharge Plan Discharge Patient Disposition: Home Clinical Impression: Non-cardiac chest pain Condition: Stable Prescriptions: No Action Viibryd 10 mg Tablet 10 mg PO DAILY 0RF Discharge Orders: Discharge ED (Routine); Ordered 04/13/21 Ordered By: Jessie Hutchison Referrals: Loco Whiting NP [Primary Care Provider] - Patient Instructions: Noncardiac Chest Pain (ED) Coding Level of Care Code ED Outfitter Cabin for Chg Fwd Exam Comprehensive Documented by User: Mikhail Rico DO 04/13/21 17:06 HPI - Chest Pain General: Chief Complaint: Chest Pain Stated Complaint: pcp sent for cp Time Seen by Provider: 04/13/21 12:44 [facility] ED PFSH: Social History Smoking and tobacco status: current every day smoker Alcohol intake: never Course Vital Signs: Vital signs: Vital Signs Temperature 98.0 F 04/13/21 10:31 Pulse Rate 67 04/13/21 13:05 Respiratory Rate 16 04/13/21 13:05 Blood Pressure 113/72 04/13/21 13:05 Pulse Oximetry 99 04/13/21 13:05 MDM - Chest Pain Medical Decision Making Patient here with intermittent right-sided chest pains that began yesterday while at work. Pain is easily reproducible on physical exam. Lab work obtained in triage including baseline troponin is unremarkable. His EKG shows no ischemic findings. CXR is normal. At this time recommended conservative management and follow-up with PCP if symptoms persist. Chart reviewed and patient discussed with midlevel. Agree with assessment and plan. Lab Data : 04/13/21 10:38 04/13/21 10:38 Radiology Impressions Chest X-Ray 04/13/21 10:48 IMPRESSION: Unremarkable portable chest. Laboratory Results WBC 11.4 10^3/uL (4.0-10.0) H 04/13/21 10:38 RBC 5.42 10^6/uL (4.1-5.3) H 04/13/21 10:38 Hgb 16.9 g/dL (11.7-16.6) H 04/13/21 10:38 Hct 50.5 % (42.0-52.0) 04/13/21 10:38 MCV 93.2 fl (80-94) 04/13/21 10:38 MCH 31.2 pg (28.0-34.0) 04/13/21 10:38 MCHC 33.5 g/dL (30.0-36.0) 04/13/21 10:38 RDW 12.6 % (12.1-15.1) 04/13/21 10:38 Plt Count 170 10^3/cmm (130-400) 04/13/21 10:38 MPV 11.3 fL (7.4-10.4) H 04/13/21 10:38 Neut % (Auto) 69.6 % 04/13/21 10:38 Lymph % (Auto) 18.0 % 04/13/21 10:38 [place] % (Auto) 8.2 % 04/13/21 10:38 Eos % (Auto) 3.2 % 04/13/21 10:38 Baso % (Auto) 0.4 % 04/13/21 10:38 Neut # (Auto) 7.94 10^3/uL (1.8-7.7) H 04/13/21 10:38 Lymph # (Auto) 2.1 10^3/uL (0.8-4.8) 04/13/21 10:38 [place] # (Auto) 0.9 10^3/uL (0.2-0.9) 04/13/21 10:38 Eos # (Auto) 0.4 10^3/uL (0.0-0.8) 04/13/21 10:38 Baso # (Auto) 0.1 10^3/uL (0.0-0.1) 04/13/21 10:38 Nucleated RBC % (auto) 0 % 04/13/21 10:38 Nucleated RBCs # 0.0 /100WBC 04/13/21 10:38 Sodium 138 mmol/L (136-145) 04/13/21 10:38 Potassium 4.4 mmol/L (3.5-5.1) 04/13/21 10:38 Chloride 100 mmol/L (98-107) 04/13/21 10:38 Carbon Dioxide 25 mmol/L (22-29) 04/13/21 10:38 Anion Gap 17.4 (5-19) 04/13/21 10:38 BUN 9 mg/dL (6-20) 04/13/21 10:38 Creatinine 0.6 mg/dL (0.7-1.2) L 04/13/21 10:38 GFR Calculation 165.5 mL/min (90-130) H 04/13/21 10:38 Glucose 107 mg/dL (65-115) 04/13/21 10:38 Calculated Osmolality 285 mOsm/kg (285-295) 04/13/21 10:38 Calcium 9.8 mg/dL (8.5-10.5) 04/13/21 10:38 Total Bilirubin 0.5 mg/dL (0.15-1.2) 04/13/21 10:38 AST 28 U/L (0-40) 04/13/21 10:38 ALT 64 U/L (0-41) H 04/13/21 10:38 Alkaline Phosphatase 72 IU/L (40-130) 04/13/21 10:38 Troponin T Baseline 6 ng/L (0-15) 04/13/21 10:38 Troponin T 120 Minute 6.00 ng/L (0-15) 04/13/21 12:35 Delta Troponin T 0 ABS# (0-10) 04/13/21 12:35 Total Protein 7.0 g/dL (6.6-8.7) 04/13/21 10:38 Albumin 4.8 g/dL (3.5-5.2) 04/13/21 10:38 Globulin 2.2 g/dL (1.3-4.6) 04/13/21 10:38 Discharge Plan Discharge Patient Disposition: Home Clinical Impression: Non-cardiac chest pain Condition: Stable Prescriptions: No Action Viibryd 10 mg Tablet 10 mg PO DAILY 0RF Discharge Orders: Discharge ED (Routine); Ordered 04/13/21 Ordered By: Jessie Hutchison Referrals: Loco Whiting NP [Primary Care Provider] - Patient Instructions: Noncardiac Chest Pain (ED) Coding Level of Care Code ED Outfitter Cabin for Chg Fwd Exam Comprehensive
[2021-04-13 13:05] VITALS: BP 113/72; PULSE 67; RESP 16; O2SAT 99
[2021-04-13 14:11] LABS: Troponin 5 2HR Delta 0 ABS# (0-10)
== END 2021-04-13 13:24 | disposition home or self-care (01) ==
PROVIDERS: Emergency Provider Physician Assistant; PCP Nurse Practitioner Family
DX: R07.89 Other chest pain (principal); F17.210 Nicotine dependence, cigarettes, uncomplicated
CPT/HCPCS: 36415; 71045; 80053; 84484; 85025; 93005; 99283

== ENCOUNTER 2021-11-01 09:14 | Emergency (ER) | payer SELFPAY ==
[2021-11-01 09:28] VITALS: BP 133/82; PULSE 76; RESP 18; TEMP 36.4; O2SAT 99; BMI 22.1
--- NOTE | 2021-11-01 09:35 | PC.NURSE ---
Pt reports went camping 10/28-10/29 and was sleeping on the ground without a mattress and reports back pain where he was sleeping. Reports he had his walk on it to pop it and attempted to stretch. Reports continued pain. Reports pain across middle back that he believes began 10/30. Denies injury. No visual abnormalities. Denies taking any OTC medications to attempt to relieve the pain. Lung sounds clear bilat. Skin pink/warm/dry. Denies incontinence.
--- NOTE | 2021-11-01 10:12 | W.ED.BACK ---
Documented by User: DEYSI Rodas 11/01/21 11:21 HPI - Back Pain/Injury General: Chief Complaint: Back Pain/Injury Stated Complaint: back pain Time Seen by Provider: 11/01/21 09:15 [facility] ED PFSH: Medical History Psychiatric care Social History Smoking and tobacco status: current every day smoker Alcohol intake: never Course ED course: I had signed up/assessed patient following Dr. Rico as there was an error in the EMR and his name was accidentally deleted off the chart. Immediately afterwards he alerted me that he had already seen patient and assumed his care. He will be the sole provider for patient at this time/during his ED stay. Please see his note for detailed assessment/disposition ES Vital Signs: Vital signs: Vital Signs Temperature 97.6 F 11/01/21 09:28 Pulse Rate 67 11/01/21 10:49 Respiratory Rate 16 11/01/21 10:49 Blood Pressure 123/66 11/01/21 10:49 Pulse Oximetry 96 11/01/21 10:49 Oxygen Delivery Me thod 11/01/21 09:28 Discharge Plan Discharge Patient Disposition: Home Clinical Impression: Thoracic back pain, Strain of lumbar region Condition: Stable Prescriptions: New prednisone 20 mg tablet 20 mg PO TID Qty: 15 0RF Rx Instructions: 1 p.o. 3 times daily x3 days, 1 p.o. twice daily x2 days, 1 p.o. daily x2 days diclofenac sodium 75 mg tablet,delayed release (DR/EC) 75 mg PO Q12H PRN (Reason: pain) Qty: 20 0RF tizanidine 4 mg capsule 4 mg PO Q6H PRN (Reason: muscle spasticity) Qty: 20 0RF Rx Instructions: do not exceed 3 doses per 24 hrs No Action escitalopram oxalate 10 mg tablet See Rx Instructions .ROUTE .COMPLEX Rx Instructions: Take 1/2 tablet by mouth every morning for four days, then one tablet every morning quetiapine 50 mg tablet 50 mg PO BEDTIME Discharge Orders: Discharge ED (Routine); Ordered 11/01/21 Ordered By: Mikhail Rico Referrals: Henok,Loco, MONOTYPE CASTER [Primary Care Provider] - Discharge Diet: Usual diet Discharge Activity: Increase activity as tolerated Patient Instructions: Opioid Safety Activity Restrictions/Additional Instructions: Limit lifting and carrying to 10 to 15 pounds. Follow-up with your primary care doctor within a week if not improving. Start prednisone taper tomorrow. 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 Has increased back pain today. No trauma no falls no other recollection of injury. He has had some chronic back pain in the past. No significant radicular symptoms. No fecal incontinence or urinary retention. Initially seen inpatient there was a mess up in the EMR and the midlevel signed up for the patient. Patient indicated to me more lumbar pain he indicated to the midlevel more thoracic pain. When I examined him he had tenderness of the left lumbar paraspinal muscles but no tenderness in thoracic spine. MD elicited complaint: back pain Pertinent past history: prior back pain Onset (ago): hour(s) Timing: constant Severity: moderate Similar Symptoms Previously: Yes Quality: aching Radiation: none Exacerbating factors: movement Relieving factors: other (rest) Associated symptoms: Deny abdominal pain, arthralgias, chills, change in bowel habits, difficulty walking, dysuria, fatigue, fecal incontinence, fever(s), hematuria, myalgias, nausea, numbness, syncope, tingling/numbness/burning, urinary frequency, urinary urgency, vomiting or weakness Review of Systems Const: Denies: fever(s), chills, fatigue or malaise ENMT: Denies: throat pain, ear or mastoid pain, nasal discharge or nasal congestion Card: Denies: chest pain or syncope Resp: Denies: dyspnea, productive cough or non-productive cough GI: Denies: abdominal pain, nausea, vomiting, fecal incontinence or change in bowel habits : Denies: flank pain, difficulty urinating, dysuria, urinary frequency, urinary urgency or hematuria Musc: Reports: back pain; Denies: extremity pain Skin/Breast: Denies: rash or pruritus Neuro: Denies: difficulty walking PFSH ED PFSH: Medical History Psychiatric care Social History Smoking and tobacco status: current every day smoker Alcohol intake: never Physical Exam Const: COMMON NORMALS: no acute distress GENERAL APPEARANCE: cooperative and comfortable ORIENTATION/CONSCIOUSNESS: Yes awake, Yes oriented to person, Yes oriented to place and Yes oriented to time HENMT: COMMON NORMALS: normocephalic, atraumatic and hearing grossly normal bilaterally HEAD & SCALP: normocephalic and atraumatic Neck/C-Spine: OTHER: Palpable tenderness along the left lumbar paraspinal muscles. No discomfort in thoracic region with palpation. Resp: COMMON NORMALS: normal respiratory effort, No retractions, No use of accessory muscles and clear to auscultation bilaterally AUSCULTATION: clear to auscultation bilaterally Cardio: COMMON NORMALS: regular rate, regular rhythm and No murmurs present (Cardio) RATE: regular rate RHYTHM: regular rhythm Extremity: COMMON NORMALS: normal to inspection, capillary refill normal, no clubbing, cyanosis or edema, no calf tenderness and no pedal edema Neuro: SENSORIUM/ORIENTATION: Yes oriented to person, Yes oriented to place and Yes oriented to time Skin: COMMON NORMALS: no rashes or lesions noted GENERAL SKIN EXAM: no rashes or lesions noted Course Vital Signs: Vital signs: Vital Signs Temperature 97.6 F 11/01/21 09:28 Pulse Rate 67 11/01/21 10:49 Respiratory Rate 16 11/01/21 10:49 Blood Pressure 123/66 11/01/21 10:49 Pulse Oximetry 96 11/01/21 10:49 Oxygen Delivery Me thod 11/01/21 09:28 MDM - Back Pain/Injury Medical Decision Making Provement with meds given's. Discharged home with prednisone taper diclofenac and tizanidine as needed if not improving follow-up with primary care. Medical Records I reviewed the patient's medical records. Labs I reviewed the patient's lab results. Discharge Plan Discharge Patient Disposition: Home Clinical Impression: Thoracic back pain, Strain of lumbar region Condition: Stable Prescriptions: New prednisone 20 mg tablet 20 mg PO TID Qty: 15 0RF Rx Instructions: 1 p.o. 3 times daily x3 days, 1 p.o. twice daily x2 days, 1 p.o. daily x2 days diclofenac sodium 75 mg tablet,delayed release (DR/EC) 75 mg PO Q12H PRN (Reason: pain) Qty: 20 0RF tizanidine 4 mg capsule 4 mg PO Q6H PRN (Reason: muscle spasticity) Qty: 20 0RF Rx Instructions: do not exceed 3 doses per 24 hrs No Action escitalopram oxalate 10 mg tablet See Rx Instructions .ROUTE .COMPLEX Rx Instructions: Take 1/2 tablet by mouth every morning for four days, then one tablet every morning quetiapine 50 mg tablet 50 mg PO BEDTIME Discharge Orders: Discharge ED (Routine); Ordered 11/01/21 Ordered By: Mikhail Rico Referrals: Loco Whiting NP [Primary Care Provider] - Discharge Diet: Usual diet Discharge Activity: Increase activity as tolerated Patient Instructions: Opioid Safety Activity Restrictions/Additional Instructions: Limit lifting and carrying to 10 to 15 pounds. Follow-up with your primary care doctor within a week if not improving. Start prednisone taper tomorrow. Coding Level of Care Code ED Office Machines Sales Representative for Mikaela Fwd Exam Detailed
[2021-11-01] MEDS: dexamethasone 10 mg/mL INJ 8 MG IM (10:20)
[2021-11-01] MEDS: ketorolac 60 mg/2 mL INJ IM (10:21)
[2021-11-01] MEDS: orphenadrine 30 mg/mL Inj 2 mL 60 MG IM (10:22)
[2021-11-01 10:49] VITALS: BP 123/66; PULSE 67; RESP 16; O2SAT 96
== END 2021-11-01 10:51 | disposition home or self-care (01) ==
PROVIDERS: Emergency Provider Family Medicine; PCP Nurse Practitioner Family
DX: M54.6 Pain in thoracic spine (principal); S39.012A Strain of muscle, fascia and tendon of lower back, initial encounter; X50.9XXA Other and unspecified overexertion or strenuous movements or postures, initial encounter; F17.210 Nicotine dependence, cigarettes, uncomplicated
CPT/HCPCS: 96372; 99284; J1100; J1885; J2360

== ENCOUNTER 2021-12-13 17:41 | Emergency (ER) | payer SELFPAY ==
[2021-12-13 18:07] VITALS: BP 121/76; PULSE 86; RESP 15; TEMP 36.8; O2SAT 100; BMI 22.1
--- NOTE | 2021-12-13 18:16 | W.ED.GENADLT ---
HPI - General Adult General: Chief complaint: General Medical Stated complaint: Tooth Pain Time Seen by Provider: 12/13/21 18:15 History of Present Illness: 26-year-old male comes in today for complaints of left upper jaw pain due to dental abscess. Patient does have some mild swelling to left upper jaw. Patient appears nontoxic. Patient appears in moderate pain. Associated symptoms: Deny chest pain, dyspnea, nausea or vomiting Review of Systems Const: Denies: fever(s) ENMT: Reports: mouth pain Card: Denies: chest pain Resp: Denies: dyspnea GI: Denies: nausea or vomiting : Denies: difficulty urinating Musc: Denies: back pain PFS ED PFSH: Medical History Psychiatric care Social History Smoking and tobacco status: current every day smoker Alcohol intake: never Physical Exam Const: COMMON NORMALS: alert HENMT: COMMON NORMALS: TM's normal bilaterally TYMPANIC MEMBRANE: TM's normal bilaterally TEETH & GINGIVA: Yes fair dentition and Yes gingiva abnormal (Redness and swelling to the left upper jaw) edematous THROAT: posterior oropharynx normal Resp: COMMON NORMALS: normal respiratory effort Cardio: COMMON NORMALS: regular rate RATE: regular rate GI: COMMON NORMALS: non-tender Neuro: SENSORIUM/ORIENTATION: Yes alert Skin: COMMON NORMALS: turgor normal GENERAL SKIN EXAM: turgor normal Course Vital Signs: Vital signs: Vital Signs Temperature 98.3 F 12/13/21 18:07 Pulse Rate 86 12/13/21 18:07 Respiratory Rate 15 12/13/21 18:07 Blood Pressure 121/76 12/13/21 18:07 Pulse Oximetry 100 12/13/21 18:07 Oxygen Delivery Me thod 12/13/21 18:07 MDM - General Adult Medical Decision Making 26-year-old male patient comes in today for complaints of left upper jaw pain and swelling. On exam there is erythema and edema to the left upper jaw around the first molar. Patient has poor dentition with multiple caries. Posterior pharynx is open without any signs of significant asymmetry or swelling. Differential diagnosis includes but not limited to dental abscess, dental pain, dental caries, retropharyngeal abscess,. Reviewed exam with patient with recommendations for treatment for dental abscess. Patient was started on Augmentin 875 mg 1 tablet twice a day for 7 days. Patient was given ibuprofen and hydrocodone for pain. Patient stated understanding and knows importance of following up with dentist for definitive care. Discharge Plan Discharge Patient Disposition: Home Clinical Impression: Dental abscess Condition: Stable Prescriptions: New ibuprofen 600 mg tablet 600 mg PO Q6H PRN (Reason: pain) Qty: 60 0RF hydrocodone-acetaminophen 5-325 mg tablet 1 tab PO Q6H PRN (Reason: pain (scale score 7-10)) Qty: 7 0RF amoxicillin-pot clavulanate 875-125 mg tablet 1 tab PO BID Qty: 14 0RF Discontinued diclofenac sodium 75 mg tablet,delayed release (DR/EC) 75 mg PO Q12H PRN (Reason: pain) Qty: 20 0RF No Action quetiapine 50 mg tablet 50 mg PO BEDTIME Qty: 30 1RF Rx Instructions: Take one tablet daily at bedtime escitalopram oxalate 20 mg tablet 20 mg PO DAILY Qty: 30 1RF Rx Instructions: Take one tablet daily at bedtime; stop 10 mg dose Discharge Orders: Discharge ED (Routine); Ordered 12/13/21 Ordered By: Layton Dumont Referrals: Loco Whiting NP [Primary Care Provider] - Discharge Diet: Usual diet Discharge Activity: Increase activity as tolerated Patient Instructions: Toothache (ED), Opioid Safety Activity Restrictions/Additional Instructions: Take antibiotic as directed 1 tablet twice a day for 7 days. Use ibuprofen routinely to help with pain and inflammation. Use hydrocodone for severe pain. Drink plenty of water with medication. Follow-up with dentist for definitive care. Return to ER for new concerns. Coding Level of Care Code ED Senior Electronics Technician for Mikaela Concepcion
[2021-12-13] MEDS: amoxicillin-clav 875-125 mg Tablet 1 TAB PO (18:26)
[2021-12-13] MEDS: HYDROcodone-acetaminophen 5-325 mg Tablet 1 TAB PO (18:27)
== END 2021-12-13 18:32 | disposition home or self-care (01) ==
PROVIDERS: Emergency Provider Nurse Practitioner Family; PCP Nurse Practitioner Family
DX: K04.7 Periapical abscess without sinus (principal); F17.210 Nicotine dependence, cigarettes, uncomplicated
CPT/HCPCS: 99283

== ENCOUNTER → 2022-03-27 17:00 | Outpatient (BNVA) | payer SELFPAY | PROVIDERS: PCP Nurse Practitioner Family; Visit Provider Registered Nurse Neonatal Intensive Care | DX: M25.561 Pain in right knee (principal) | CPT/HCPCS: 73562 ==

== ENCOUNTER 2022-12-29 08:36 | Emergency (ER) | payer MEDICAID, SELFPAY ==
[2022-12-29 08:40] VITALS: BP 151/78; PULSE 79; RESP 18; TEMP 36.7; O2SAT 98; BMI 22.1
[2022-12-29 08:47] VITALS: BP 151/78; PULSE 79; RESP 18; O2SAT 98
--- NOTE | 2022-12-29 08:47 | W.ED.DENTAL ---
HPI - Dental/Oral General: Chief complaint: Dental/Oral Stated complaint: right side jaw pain Time Seen by Provider: 12/29/22 08:39 Source: patient Mode of arrival: ambulatory History of Present Illness: 27-year-old male presents to the emergency room complaining of a dental fracture right posterior mandibular molar occurred while he was eating. Moderate pain. No fever sweats chills no drainage or swelling. Injury occurred 2 days ago. Teeth map: 1. Onset (ago): day(s) (2) Severity: mild Relieving factors: nothing Exacerbating factors: chewing, cold and heat Associated symptoms: Denies ear or mastoid pain, fever(s), gum swelling, odynophagia, sore throat or tongue swelling Treatment prior to arrival: none Review of Systems Const: Denies: fever(s) ENMT: Denies: odynophagia or ear or mastoid pain Card: Denies: chest pain Resp: Denies: dyspnea GI: Denies: abdominal pain : Denies: dysuria, urinary frequency or urinary urgency Musc: Denies: neck pain or back pain Skin/Breast: Denies: rash All/Imm: Denies: tongue swelling PENDING SALE TO [facility] ED PFSH: Medical History Psychiatric care Social History Smoking and tobacco/nicotine status: current every day tobacco/nicotine user Alcohol intake: never Substance/Drug Use: never Physical Exam Const: GENERAL APPEARANCE: cooperative and comfortable ORIENTATION/CONSCIOUSNESS: Yes awake, Yes oriented to person, Yes oriented to place and Yes oriented to time HENMT: COMMON NORMALS: normocephalic, atraumatic and hearing grossly normal bilaterally HEAD & SCALP: normocephalic and atraumatic OTHER: Right posterior maxillary molar with fracture of the medial posterior aspect of the tooth. No swelling and no drainage. Neck/C-Spine: COMMON NORMALS: no lymphadenopathy Neuro: SENSORIUM/ORIENTATION: Yes oriented to person, Yes oriented to place and Yes oriented to time Skin: COMMON NORMALS: no rashes or lesions noted GENERAL SKIN EXAM: no rashes or lesions noted Course Vital Signs: Vital signs: Vital Signs Temperature 98.0 F 12/29/22 08:40 Pulse Rate 79 12/29/22 08:47 Respiratory Rate 18 12/29/22 08:47 Blood Pressure 151/78 12/29/22 08:47 Pulse Oximetry 98 12/29/22 08:47 Oxygen Delivery Me thod Room Air 12/29/22 08:47 MDM - Dental/Oral Medical Decision Making Topical anesthesia either [id number] or can use clove oil,. Paraffin wax to protect exposed portions of the tooth follow-up with dentist as soon as able use diclofenac as needed avoid foods and drinks at extremes of temperature Medical Records I reviewed the patient's medical records. No radiology studies performed this visit Discharge Plan Discharge Patient Disposition: Home Clinical Impression: Fracture of tooth Condition: Stable Prescriptions: New diclofenac sodium 75 mg tablet,delayed release (DR/EC) 75 mg PO Q12H PRN (Reason: pain) Qty: 20 0RF No Action erythromycin 5 mg/gram (0.5 %) ointment 1 applic ophthalmic (eye) 6XD Qty: 3.5 0RF quetiapine 50 mg tablet 50 mg PO BEDTIME Qty: 30 1RF Rx Instructions: Take one tablet daily at bedtime Discharge Orders: Discharge ED (Routine); Ordered 12/29/22 Ordered By: Mikhail Rico Referrals: Loco Whiting NP [Primary Care Provider] - Discharge Diet: As Directed Discharge Activity: Resume usual activity Patient Instructions: Acute Dental Trauma (ED), Opioid Safety, Pain Management, Chipped or Broken Tooth Activity Restrictions/Additional Instructions: Use diclofenac as needed for discomfort. Avoid foods and drinks at extremes of temperature. You can use [id number] topical remedies or [id number] clove oil as a topical for anesthetic, use paraffin wax to protect the exposed area of tooth and pulp. Follow-up with dentist as soon as you are able. Coding Level of Care Code ED Assistant Press Operator for Mikaela Concepcion
== END 2022-12-29 08:55 | disposition home or self-care (01) ==
PROVIDERS: Emergency Provider Family Medicine; PCP Nurse Practitioner Family
DX: S02.5XXA Fracture of tooth (traumatic), initial encounter for closed fracture (principal); F17.210 Nicotine dependence, cigarettes, uncomplicated; X58.XXXA Exposure to other specified factors, initial encounter
CPT/HCPCS: 99283

== ENCOUNTER 2023-02-27 13:52 | Emergency (ER) | payer MEDICAID, SELFPAY ==
[2023-02-27 13:58] VITALS: BP 143/72; PULSE 99; RESP 16; TEMP 36.9; O2SAT 99; BMI 22.1
--- NOTE | 2023-02-27 14:25 | ED_ITS ---
HPI - Abdominal Pain 2 General: Chief Complaint: Abdominal Pain Stated Complaint: Groin Pain Time Seen by Provider: 02/27/23 14:24 History of Present Illness: 27-year-old male patient comes in today for swelling and tenderness to right scrotal area. Patient reports noticing the abnormality in the cord coming off his testicle this morning. Patient has a history of inguinal hernia. Patient appears in mild pain. Patient appears nontoxic. Patient denies any falls or injuries. Associated Symptoms: Denies constipation, diarrhea, fever(s), nausea and vomiting Review of Systems 2 General: Reports: 10 or more systems reviewed and unremarkable except in HPI and below Const: Denies: fever(s) Card: Denies: chest pain Resp: Denies: dyspnea GI: Denies: nausea, vomiting, diarrhea or constipation : Reports: testicular pain and scrotal swelling Musc: Denies: neck pain or back pain Skin/Breast: Denies: rash PFSH ED 2 PFSH: Social History Smoking and tobacco/nicotine status: current every day tobacco/nicotine user Alcohol intake: never Substance/Drug Use: never Physical Exam 2 Const: COMMON NORMALS: alert HENMT: COMMON NORMALS: normocephalic HEAD & SCALP: normocephalic Neck/C-Spine: COMMON NORMALS: full ROM Resp: COMMON NORMALS: normal respiratory effort and clear to auscultation bilaterally AUSCULTATION: clear to auscultation bilaterally Cardio: COMMON NORMALS: regular rate and regular rhythm RATE: regular rate RHYTHM: regular rhythm GI: COMMON NORMALS: non-tender : COMMON NORMALS: Yes no CVA tenderness BLADDER/KIDNEY EXAM: Yes no CVA tenderness Back/Pelvis: COMMON NORMALS: no CVA tenderness Extremity: COMMON NORMALS: normal to inspection Neuro: SENSORIUM/ORIENTATION: Yes alert Skin: COMMON NORMALS: turgor normal GENERAL SKIN EXAM: turgor normal Course 2 Vital Signs: Vital signs: Vital Signs Temperature 98.5 F 02/27/23 13:58 Pulse Rate 99 02/27/23 13:58 Respiratory Rate 16 02/27/23 13:58 Blood Pressure 143/72 02/27/23 13:58 Pulse Oximetry 99 02/27/23 13:58 MDM - Abdominal Pain Medical Decision Making 27-year-old male comes in today with right testicular pain and swelling along the vas deferens leading off the right testicle. On exam there is no redness or significant swelling noted there is a small palpable nodule. Differential diagnosis includes not limited to testicular torsion, hydrocele, epididymitis, orchitis. CBC and CMP were unremarkable. Ultrasound of the scrotum suggested orchitis. No signs of testicular torsion or abscess was noted. Patient be treated for orchitis with doxycycline 100 mg twice a day for 7 days and naproxen. Patient was recommended to follow-up with primary care for further instructions. Urine was sent for gonorrhea and chlamydia. Lab Data 02/27/23 14:30 02/27/23 14:30 Labs/Radiology: Laboratory Results WBC 7.94 10^3/uL (3.29-11.43) 02/27/23 14:30 RBC 5.54 10^6/uL (3.85-5.65) 02/27/23 14:30 Hgb 17.20 g/dL (11.27-16.99) H 02/27/23 14:30 Hct 49.7 % (37-53) 02/27/23 14:30 MCV 89.7 fl (82-101) 02/27/23 14:30 MCH 31.0 pg (27-33) 02/27/23 14:30 MCHC 34.6 g/dL (30-55) 02/27/23 14:30 RDW 11.9 % (12.1-15.1) L 02/27/23 14:30 Plt Count 151 10^3/cmm (157-399) L 02/27/23 14:30 MPV 10.4 fL (7.4-10.4) 02/27/23 14:30 Neut % (Auto) 82.0 % 02/27/23 14:30 Lymph % (Auto) 5.8 % 02/27/23 14:30 [place] % (Auto) 9.7 % 02/27/23 14:30 Eos % (Auto) 1.8 % 02/27/23 14:30 Baso % (Auto) 0.3 % 02/27/23 14:30 Neut # (Auto) 6.52 10^3/uL (1.8-7.7) 02/27/23 14:30 Lymph # (Auto) 0.5 10^3/uL (0.8-4.8) L 02/27/23 14:30 [place] # (Auto) 0.8 10^3/uL (0.2-0.9) 02/27/23 14:30 Eos # (Auto) 0.1 10^3/uL (0.0-0.8) 02/27/23 14:30 Baso # (Auto) 0.0 10^3/uL (0.0-0.1) 02/27/23 14:30 Nucleated RBC % (auto) 0 % 02/27/23 14:30 Nucleated RBCs # 0.0 /100WBC 02/27/23 14:30 Sodium 137 mmol/L (136-145) 02/27/23 14:30 Potassium 4.2 mmol/L (3.5-5.1) 02/27/23 14:30 Chloride 99 mmol/L (98-107) 02/27/23 14:30 Carbon Dioxide 28 mmol/L (22-29) 02/27/23 14:30 Anion Gap 14.2 (5-19) 02/27/23 14:30 BUN 11 mg/dL (6-20) 02/27/23 14:30 Creatinine 0.8 mg/dL (0.7-1.2) 02/27/23 14:30 GFR Calculation 116.9 mL/min (90-130) 02/27/23 14:30 Glucose 99 mg/dL (65-115) 02/27/23 14:30 Calculated Osmolality 283 mOsm/kg (285-295) L 02/27/23 14:30 Calcium 9.6 mg/dL (8.5-10.5) 02/27/23 14:30 Total Bilirubin 0.5 mg/dL (0.15-1.2) 02/27/23 14:30 AST 18 U/L (0-40) 02/27/23 14:30 ALT 21 U/L (0-41) 02/27/23 14:30 Alkaline Phosphatase 71 U/L (40-130) 02/27/23 14:30 Total Protein 7.5 g/dL (6.6-8.7) 02/27/23 14:30 Albumin 5.0 g/dL (3.5-5.2) 02/27/23 14:30 Globulin 2.5 g/dL (1.3-4.6) 02/27/23 14:30 Lipase 12 U/L (13-60) L 02/27/23 14:30 All radiology interpretation(s) finalized by discharge Discharge Plan Discharge Patient Disposition: Home Clinical Impression: Orchitis and epididymitis, unspecified Condition: Stable Prescriptions: New doxycycline hyclate 100 mg capsule 100 mg PO BID 7 Days Qty: 14 0RF naproxen 500 mg tablet 500 mg PO BID PRN (Reason: pain) Qty: 20 0RF No Action ibuprofen 200 mg Tablet 400 mg PO Q6H PRN (Reason: Pain) Discharge Orders: Discharge ED (Routine); Ordered 02/27/23 Ordered By: Layton Dumont Referrals: Loco Whiting NP [Primary Care Provider] - Discharge Diet: Usual diet Discharge Activity: Increase activity as tolerated Patient Instructions: Epididymo-Orchitis (ED) Activity Restrictions/Additional Instructions: Take medication as directed. Drink plenty of water and fluids. Activity as tolerated. Follow-up with primary care for further instructions. Return to ED for new concerns. Stand Alone Forms: Work/School Release Coding Level of Care Code ED Applications Systems Analyst for Mikaela Concepcion
--- NOTE | 2023-02-27 14:29 | US_ITS ---
WS: [id number] TESTICULAR ULTRASOUND HISTORY: right scrotal swelling, pain COMPARISON: 03/09/2020 TECHNIQUE: Real-time and color Doppler imaging or utilized to perform a testicular ultrasound. Right testicle: 4.3 cm x 2.3 cm x 2.1 cm. Normal size and echogenicity. No mass or torsion. Increased color Doppler throughout each testicle. No mass. No significant hydrocele. Right epididymis: Normal epididymis with no increased vascularity. Prominent bilateral varicosities. Left testicle: 4.9 cm x 2.8 cm x 2.0 cm. Normal size and echogenicity. No mass or torsion. Increased Doppler flow in each testicle. No significant hydrocele. Left epididymis: Normal epididymis with no increased vascularity. Prominent bilateral varicosities. IMPRESSION: 1. Increased vascularity noted within each testicle suspicious for bilateral orchitis. There is no ma ss or torsion. Bilateral varicoceles. Similar to the prior study from 2019.
[2023-02-27 14:36] LABS: Basophils % 0.3 %; Eosinophils # 0.1 10^3/uL (0.0-0.8); Eosinophils % 1.8 %; Hematocrit 49.7 % (37-53); Lymphocytes # 0.5 10^3/uL (0.8-4.8); Lymphocytes % 5.8 %; Mean Corpuscular HGB Conc 34.6 g/dL (30-55); Mean Corpuscular Volume 89.7 fl (82-101); Mean Platelet Volume 10.4 fL (7.4-10.4); Monocytes # 0.8 10^3/uL (0.2-0.9); Monocytes % 9.7 %; Neutrophils # 6.52 10^3/uL (1.8-7.7); Nucleated Red Blood Cells % 0 %; Platelet Count 151 10^3/cmm (157-399); Red Blood Count 5.54 10^6/uL (3.85-5.65); Red Cell Distribution Width 11.9 % (12.1-15.1); White Blood Count 7.94 10^3/uL (3.29-11.43)
[2023-02-27 14:56] LABS: Alanine Aminotransferase 21 U/L (0-41); Alkaline Phosphatase 71 U/L (40-130); Anion Gap 14.2 (5-19); Aspartate Amino Transferase 18 U/L (0-40); Blood Urea Nitrogen 11 mg/dL (6-20); Calcium 9.6 mg/dL (8.5-10.5); Carbon Dioxide 28 mmol/L (22-29); Chloride 99 mmol/L (98-107); Globulin 2.5 g/dL (1.3-4.6); Glomerular Filtration Rate 116.9 mL/min (90-130); Glucose 99 mg/dL (65-115); Lipase 12 U/L (13-60); Osmolality Calculated 283 mOsm/kg (285-295); Potassium 4.2 mmol/L (3.5-5.1); Sodium 137 mmol/L (136-145); Total Bilirubin 0.5 mg/dL (0.15-1.2); Total Protein 7.5 g/dL (6.6-8.7)
[2023-02-27 15:51] LABS: Add Urine Microscopic? NO; Charge for UA Resulting for Rev
[2023-02-27 16:31] LABS: Bilirubin Urine Neg (Negative); Blood Urine Neg (Negative); Glucose Urine UA Norm (Normal); Ketones Urine Negative (Negative); Leukocyte Esterase Urine Negative (Negative); Nitrate Urine Negative (Negative); Protein Urine Neg (Negative); Specific Gravity, Urine 1.015 (1.005-1.030); Urine Appearance Clear (CLEAR); Urine Color Yellow (Yellow); Urobilinogen Urine Norm (Negative); pH Urine 7 (5-7)
[2023-02-28 18:59] LABS: Chlamydia Trachomatis RNA TMA NOT DETECTED (NOT DETECTED); Neisseria Gonorrhoeae RNA, TMA NOT DETECTED (NOT DETECTED); Trichomonas Vaginalis RNA NOT DETECTED (NOT DETECTED)
== END 2023-02-27 16:19 | disposition home or self-care (01) ==
PROVIDERS: Emergency Medicine; Emergency Provider Nurse Practitioner Family; PCP Nurse Practitioner Family
DX: N45.3 Epididymo-orchitis (principal); Z72.0 Tobacco use
CPT/HCPCS: 76870; 80053; 81003; 83690; 85025; 87491; 87591; 99284

== ENCOUNTER 2023-09-04 13:33 | Inpatient (IN) | payer SELFPAY ==
--- NOTE | 2023-09-04 13:49 | ED.C_ITS ---
HPI - Psych 2 General: Chief Complaint: Psychiatric Symptoms Stated Complaint: SI Time Seen by Provider: 09/04/23 13:38 Source: patient Mode of arrival: ambulatory Limitations: no limitations History of Present Illness: 28-year-old male states that he has been having increasing depression over the last week with suicidal ideations. He had history depression the past and has not been on any psych meds does not see a psychiatrist either. Patient denies any specific plans but states he is scared he is going to do something and wants to get help. Associated symptoms: Reports depression and suicidal ideation Review of Systems 2 Const: Denies: fever(s), chills, body aches or change in appetite ENMT: Denies: throat pain or dental pain Card: Denies: chest pain Resp: Denies: dyspnea GI: Denies: abdominal pain, nausea, vomiting or diarrhea Musc: Denies: neck pain or back pain Skin/Breast: Denies: rash Neuro: Denies: headache(s) Psych: Reports: depression and suicidal ideation PFS ED 2 PFSH: Social History Smoking and tobacco/nicotine status: current every day tobacco/nicotine user Alcohol intake: never Substance/Drug Use: never Physical Exam 2 Const: COMMON NORMALS: no acute distress, patient oriented x3 and healthy appearing HENMT: COMMON NORMALS: normocephalic and atraumatic HEAD & SCALP: n ormocephalic and atraumatic Eye: COMMON NORMALS: Equal, round and reactive pupils present and EOMs intact bilaterally PUPIL: Yes Equal, round and reactive pupils present Neck/C-Spine: COMMON NORMALS: full ROM and supple Chest: COMMONS NORMALS: normal inspection of the chest Resp: COMMON NORMALS: normal respiratory effort Cardio: COMMON NORMALS: regular rate, regular rhythm and No murmurs present (Cardio) RATE: regular rate RHYTHM: regular rhythm Extremity: COMMON NORMALS: normal to inspection and full ROM Neuro: COMMON NORMALS: patient oriented x3, moves all extremities and no focal motor deficits Psych: COMMON NORMALS: mental status grossly normal, Normal thought process present and cooperative THOUGHT PROCESS: Normal thought process present T HOUGHT CONTENT: Yes Suicidality present Skin: COMMON NORMALS: no rashes or lesions noted and no wounds GENERAL SKIN EXAM: no rashes or lesions noted Course 2 Vital Signs: Vital signs: Vital Signs Temperature 98.2 F 09/04/23 13:52 Pulse Rate 85 09/04/23 14:19 Respiratory Rate 18 09/04/23 14:19 Blood Pressure 119/79 09/04/23 13:52 Pulse Oximetry 98 09/04/23 14:19 Oxygen Delivery Me thod Room Air 09/04/23 14:19 [facility] - Psych Medical Decision Making Patient presents here with suicidal ideations he is medically cleared I spoke to the psychiatrist will admit to our psych bruno. Medical Records I reviewed the patient's medical records. Lab Data I reviewed the patient's lab results. 09/04/23 14:11 09/04/23 14:11 Laboratory Results WBC 8.94 10^3/uL (3.29-11.43) 09/04/23 14:11 RBC 5.69 10^6/uL (3.85-5.65) H 09/04/23 14:11 Hgb 17.40 g/dL (11.27-16.99) H 09/04/23 14:11 Hct 49.9 % (37-53) 09/04/23 14:11 MCV 87.7 fl (82-101) 09/04/23 14:11 MCH 30.6 pg (27-33) 09/04/23 14:11 MCHC 34.9 g/dL (30-55) 09/04/23 14:11 RDW 12.0 % (12.1-15.1) L 09/04/23 14:11 Plt Count 178 10^3/cmm (157-399) 09/04/23 14:11 MPV 10.8 fL (7.4-10.4) H 09/04/23 14:11 Neut % (Auto) 64.8 % 09/04/23 14:11 Lymph % (Auto) 25.3 % 09/04/23 14:11 [place] % (Auto) 7.4 % 09/04/23 14:11 Eos % (Auto) 1.8 % 09/04/23 14:11 Baso % (Auto) 0.4 % 09/04/23 14:11 Neut # (Auto) 5.79 10^3/uL (1.8-7.7) 09/04/23 14:11 Lymph # (Auto) 2.3 10^3/uL (0.8-4.8) 09/04/23 14:11 [place] # (Auto) 0.7 10^3/uL (0.2-0.9) 09/04/23 14:11 Eos # (Auto) 0.2 10^3/uL (0.0-0.8) 09/04/23 14:11 Baso # (Auto) 0.0 10^3/uL (0.0-0.1) 09/04/23 14:11 Nucleated RBC % (auto) 0 % 09/04/23 14:11 Nucleated RBCs # 0.0 /100WBC 09/04/23 14:11 Sodium 143 mmol/L (136-145) 09/04/23 14:11 Potassium 4.1 mmol/L (3.5-5.1) 09/04/23 14:11 Chloride 103 mmol/L (98-107) 09/04/23 14:11 Carbon Dioxide 29 mmol/L (22-29) 09/04/23 14:11 Anion Gap 15.1 (5-19) 09/04/23 14:11 BUN 19 mg/dL (6-20) 09/04/23 14:11 Creatinine 0.7 mg/dL (0.7-1.2) 09/04/23 14:11 Glucose 112 mg/dL (65-115) 09/04/23 14:11 Calcium 9.7 mg/dL (8.5-10.5) 09/04/23 14:11 Total Bilirubin 0.8 mg/dL (0.15-1.2) 09/04/23 14:11 AST 14 U/L (0-40) 09/04/23 14:11 ALT 21 U/L (0-41) 09/04/23 14:11 Alkaline Phosphatase 68 U/L (40-130) 09/04/23 14:11 Total Protein 7.5 g/dL (6.6-8.7) 09/04/23 14:11 Albumin 5.0 g/dL (3.5-5.2) 09/04/23 14:11 Globulin 2.5 g/dL (1.3-4.6) 09/04/23 14:11 No radiology studies performed this visit Discharge Plan Discharge Patient Disposition: Admitted As Inpatient Clinical Impression: Suicidal ideation Condition: Stable Coding Level of Care Code ED Check Writing Machine Operator for Mikaela Concepcion
[2023-09-04 13:52] VITALS: BP 119/79; PULSE 82; RESP 16; TEMP 36.8; O2SAT 99; BMI 22.1
[2023-09-04 14:19] VITALS: PULSE 85; RESP 18; O2SAT 98
--- NOTE | 2023-09-04 14:30 | PC.NURSE ---
96 hour hold rights read to patient. Patient verbalized understandings. Copy of rights given to patient.
[2023-09-04 14:36] LABS: Basophils % 0.4 %; Eosinophils # 0.2 10^3/uL (0.0-0.8); Eosinophils % 1.8 %; Hematocrit 49.9 % (37-53); Lymphocytes # 2.3 10^3/uL (0.8-4.8); Lymphocytes % 25.3 %; Mean Corpuscular HGB Conc 34.9 g/dL (30-55); Mean Corpuscular Hemoglobin 30.6 pg (27-33); Mean Corpuscular Volume 87.7 fl (82-101); Mean Platelet Volume 10.8 fL (7.4-10.4); Monocytes # 0.7 10^3/uL (0.2-0.9); Monocytes % 7.4 %; Neutrophils # 5.79 10^3/uL (1.8-7.7); Neutrophils % 64.8 %; Nucleated Red Blood Cells % 0 %; Platelet Count 178 10^3/cmm (157-399); Red Blood Count 5.69 10^6/uL (3.85-5.65); White Blood Count 8.94 10^3/uL (3.29-11.43)
[2023-09-04 14:38] LABS: Alanine Aminotransferase 21 U/L (0-41); Alkaline Phosphatase 68 U/L (40-130); Anion Gap 15.1 (5-19); Aspartate Amino Transferase 14 U/L (0-40); Blood Urea Nitrogen 19 mg/dL (6-20); Calcium 9.7 mg/dL (8.5-10.5); Carbon Dioxide 29 mmol/L (22-29); Chloride 103 mmol/L (98-107); Creatinine Clr Calc Pharmacy 156.1274; Globulin 2.5 g/dL (1.3-4.6); Glomerular Filtration Rate 135.3 mL/min (90-130); Glucose 112 mg/dL (65-115); Osmolality Calculated 299 mOsm/kg (285-295); Potassium 4.1 mmol/L (3.5-5.1); Sodium 143 mmol/L (136-145); Total Bilirubin 0.8 mg/dL (0.15-1.2); Total Protein 7.5 g/dL (6.6-8.7)
[2023-09-04 14:43] LABS: Acetaminophen < 5.0 ug/mL (10-30); Alcohol Level < 10 mg/dL (0-10); Salicylate < 0.3 mg/dL (3-10)
[2023-09-04 16:06] VITALS: BP 125/85; PULSE 58; RESP 20; TEMP 36.7; O2SAT 100
--- NOTE | 2023-09-04 16:46 | PC.ADMIT ---
[address] Admission Note: The patient,Babar Toledo,28 y/o, was given written information regarding hospital policies, unit procedures and contact persons. Patient's smoking status: current every day smoker. Vital Signs - 8 hr 09/04/23 13:52 09/04/23 14:19 09/04/23 16:06 Temperature 98.2 F 98.1 F Pulse Rate 82 85 58 L Respiratory Rate 16 18 20 H Blood Pressure 119/79 125/85 Pulse Oximetry 99 98 100 Oxygen Delivery Method Room Air Room Air 09/04/23 16:38 Temperature Pulse Rate Respiratory Rate Blood Pressure Pulse Oximetry Oxygen Delivery Method Room Air ADMITTED VIA WHEELCHAIR, SECURITY AND ER STAFF. PT IS ON A 96 HOUR HOLD THAT ENDS ON 09/11/23 AT 0001. PT IS A&O TIMES FOUR, DENIES PAIN. CALM AND COOPERATIVE. STATES HE IS HERE DUE TO HAVING SUICIDAL THOUGHTS AND BAD DEPRESSION THAT HAS GOTTEN WORSE OVER THE LAST WEEK. PT ALSO REPORTS HE WILL BE HOMELESS THE END OF THE MONTH AND IS WANTING HELP WITH HIS LIVING SITUATION. CURRENTLY DENIES TAKING ANY MEDICATIONS ON A ROUTINE BASIS, STATES I USE TO BE ON MEDS BUT HAVEN'T BEEN FOR AWHILE. REPORTS HE HAS BEEN DIAGNOSED WITH DEPRESSION, ANXIETY AND BIPOLAR DISORDER. PT IS ALLERGIC TO REGLAN. REPORTS USING MARIJUANA DAILY AND TOBACCO. STATES HE QUIT USING METHAMPHETAMINES 4 YEARS AGO. PT CONFIRMS HE HAS A SUPPORT SYSTEM. SKIN ASSESSMENT COMPLETED AND NO SKIN ISSUES WERE OBSERVED. PT WAS ORIENTATED TO NPU, SAFETY RULES AND GUIDELINES. ALL QUESTIONS WERE ANSWERED AND SUPPORT WAS VOICED. DENIES SI/HI AND AVH AT THIS TIME. DENIES HE IS VIOLENT.
[2023-09-04] MEDS: nicotine 4 mg lozenge MUCOUS MEM ×3 (16:54→21:53)
[2023-09-04 18:34] LABS: Amphetamines Screen Urine Negative (Negative); Barbiturates Screen Urine Negative (Negative); Benzodiazepines Screen Urine Negative (Negative); Cocaine Screen Urine Negative (Negative); Opiate Screen Urine Negative (Negative); PCP Screen Urine Negative (Negative); THC Screen Urine Positive (Negative)
[2023-09-04 19:57] VITALS: BP 137/75; PULSE 66; RESP 18; TEMP 36.3; O2SAT 98
[2023-09-05 05:58] VITALS: BP 104/64; PULSE 56; RESP 16; TEMP 36.6; O2SAT 98
--- NOTE | 2023-09-05 07:44 | PC.NURSE ---
During morning assessment, patient said that he is pretty good. When asked about anxiety and depression, patient stated not really. Patient denied SI, HI, AVH. Patient in dayroom, calmly watching TV.
[2023-09-05] MEDS: nicotine 4 mg lozenge MUCOUS MEM ×6 (08:44→20:51)
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
[2023-09-05 13:42] VITALS: BP 132/74; PULSE 67; RESP 20; TEMP 36.6; O2SAT 98
[2023-09-05] MEDS: fluoxetine 20 mg Capsule PO (16:04)
[2023-09-05 19:49] VITALS: BP 124/81; PULSE 67; RESP 20; TEMP 36.9; O2SAT 98
[2023-09-06 06:00] VITALS: BP 132/54; PULSE 74; RESP 17; TEMP 36.6; O2SAT 99
[2023-09-06] MEDS: nicotine 4 mg lozenge MUCOUS MEM ×7 (06:38→21:05)
[2023-09-06] MEDS: ibuprofen 600 mg Tablet PO (07:01)
--- NOTE | 2023-09-06 07:54 | PC.NURSE ---
PT UP WALKING HALLS THIS AM AND CONVERSING WITH OTHER PEERS AND STAFF. DENIES PAIN. DENIES SI/HI AND AVH AT THIS TIME. PT RATES ANXIETY 2/10 AND DEPRESSION 0/10. PT IS IN GOOD SPIRITS THIS MORNING AND REPORTS HE SLEPT GOOD MEDICATION COMPLIANT. ALL QUESTIONS ANSWERED AND SUPPORT VOICED.
[2023-09-06] MEDS: fluoxetine 20 mg Capsule PO (07:55)
[2023-09-06 13:05] VITALS: BP 132/84; PULSE 70; RESP 16; TEMP 36.6; O2SAT 98
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
[2023-09-06 21:47] VITALS: BP 128/81; PULSE 59; RESP 17; TEMP 36.8; O2SAT 98
[2023-09-07 06:00] VITALS: BP 116/75; PULSE 53; RESP 16; TEMP 36.7; O2SAT 97
[2023-09-07] MEDS: nicotine 4 mg lozenge MUCOUS MEM ×7 (06:42→21:12)
[2023-09-07] MEDS: ibuprofen 600 mg Tablet PO ×2 (06:42→21:37)
[2023-09-07] MEDS: fluoxetine 20 mg Capsule PO (08:35)
--- NOTE | 2023-09-07 10:20 | P.NPUPN_ITS ---
Subjective NPU 2 Subjective: Patient presented today reporting that he is continuing to feel slow but steady improvement. He reports that he is feeling less worried about when he leaves here. He does report however that it is critical to him that he have the pieces in place to make sure that therapy and medication management can happen including the appointments as well as making sure that the Medicaid process is in place. He reports that he was in contact with [place] who assists with initiating Medicaid but that he never got papers she says she was going to get to him to finish things off. We discussed that likely being a Saturday morning project with likely discharge after. He denies any side effects of the medication. Mental Status Exam 2 MSE Comments: This is a well-nourished, well-developed white male in hospital scrubs with adequate grooming and eye contact. No abnormal movements except for mild psychomotor retardation. Cooperative with exam in mild distress. Speech was decreased rate and normal volume. Patient mood described as a little better, affect congruent. Thought process, organized. Thought content: patient denies any suicidal or homicidal ideations but reports feeling suicidal on admission, no delusions reported or noted, and denies any auditory or visual hallucinations. Patient exhibits signs of depression, including feelings of helplessness, hopelessness, worthlessness, and sadness. He has sleep problems and appetite issues, particularly not eating enough. He has had periods of intense anger and frustration from a young age. He has a history of self-harm, specifically cutting himself once. He experiences anxiety, particularly worrying about potential negative outcomes. He has nightmares and flashbacks about traumatic events. He does not report any hallucinations or delusions. Attention and concentration are intact and memory is mostly reliable but none were formally tested. He is alert and oriented x 3. Insight and judgement are limited. Impulse control is limited. Vitals/I&O/Wt Last Vital Signs Temp 98.0 F 09/07/23 06:00 Pulse 53 L 09/07/23 06:00 Resp 16 09/07/23 06:00 BP 116/75 09/07/23 06:00 Pulse Ox 97 09/07/23 06:00 O2 Del Method Room Air 09/07/23 06:00 Data NPU 09/04/23 14:11 09/04/23 14:11 A&P Assessment and plan (1) Suicidal ideation: (2) PTSD (post-traumatic stress disorder): (3) Major depressive disorder: (4) Anxiety: (5) Borderline personality disorder: Plan This is a 28 year old white male with post traumatic stress disorder, and history of addiction including past methamphetamine and current cannabis use known through past outpatient services whose symptoms suggest a possible diagnosis of Borderline Personality Disorder (BPD) or trauma-related issues rather than bipolar disorder. He exhibits signs of depression and anxiety, and has a history of volatile relationships and intense emotional reactions. He also has a history of trauma, which could be contributing to his current mental health issues and is currently not on medication. Plan 1. Started Prozac 20 mg p.o. daily 2. Will consider restarting previous medication. 3. Encourage individual, group and milieu therapy 4. Continue q-15 minute check for safety 5. Recommend sober living treatment at the highest level of care to which the patient is willing to commit. 6. Discussed the likelihood of discharge on Saturday. Making sure that he has appropriate follow-up appointments as well as application to Medicaid in place. Discussed working with social work team on Saturday to make sure all of those things are done. Involuntary Hold Information 2 96 Hour Hold: 96 Hour Involuntary Admission: Yes 96 Hour Hold Ending Date: 09/11/23 96 Hour Hold Ending Time: 00:01 Attestations NPU 2 Medical Necessity Statement*: Inpatient hospitalization is medically necessary and the clinically appropriate intervention at this time. We will monitor medications and make changes as indicated. Likely length of stay is 1- 3 days Coding Level of Care Code Acute Code for [facility] Fwd Diagnoses Suicidal ideation R45.851 PTSD (post-traumatic stress disorder) F43.10 Major depressive disorder F32.9 Anxiety F41.9 Borderline personality disorder F60.3
[2023-09-07 13:59] VITALS: BP 126/78; PULSE 77; RESP 17; TEMP 37.1; O2SAT 99
[2023-09-07 19:49] VITALS: BP 121/75; PULSE 78; RESP 17; TEMP 36.6; O2SAT 98
[2023-09-08] MEDS: nicotine 4 mg lozenge MUCOUS MEM ×7 (05:57→19:59)
[2023-09-08] MEDS: ibuprofen 600 mg Tablet PO (05:57)
[2023-09-08 06:00] VITALS: BP 137/86; PULSE 63; RESP 18; TEMP 36.5; O2SAT 98
[2023-09-08] MEDS: acetaminophen 325 mg Tablet 650 MG PO (08:07)
[2023-09-08] MEDS: fluoxetine 20 mg Capsule PO (08:08)
--- NOTE | 2023-09-08 13:44 | P.NPUPN_ITS ---
Subjective NPU 2 Subjective: Patient presented today reporting that he is feeling significantly better. He reports his only concerns at this time are that he get insurance and that he be able to have appointments set up when he leaves. We discussed that those things will happen tomorrow as far as the appointments and that the insurance process will be in place and it would just take time for it to get active. We also discussed the fact that we would use the meds to beds program that will allow him to have 30 days with the medication to try to bridge the time from leaving here and his insurance becoming active. He denied any side effects of the medication. We discussed the plan for discharge tomorrow. Mental Status Exam 2 MSE Comments: This is a well-nourished, well-developed white male in hospital scrubs with adequate grooming and eye contact. No abnormal movements. Cooperative with exam in no acute distress. Speech was more normal rate and normal volume. Patient mood described as better, affect congruent. Thought process, organized. Thought content: patient denies any suicidal or homicidal ideations but reports feeling suicidal on admission, no delusions reported or noted, and denies any auditory or visual hallucinations. Patient no longer exhibits signs of depression, including feelings of helplessness, hopelessness, worthlessness, and sadness. He has sleep problems and appetite issues, particularly not eating enough. He has had periods of intense anger and frustration from a young age. He has a history of self-harm, specifically cutting himself once. He experiences anxiety, particularly worrying about potential negative outcomes. He has nightmares and flashbacks about traumatic events. He does not report any hallucinations or delusions. Attention and concentration are intact and memory is mostly reliable but none were formally tested. He is alert and oriented x 3. Insight and judgment are limited, but improving. Impulse control is limited, but improving. Vitals/I&O/Wt Last Vital Signs Temp 97.7 F 09/08/23 06:00 Pulse 63 09/08/23 06:00 Resp 18 09/08/23 06:00 BP 137/86 09/08/23 06:00 Pulse Ox 98 09/08/23 06:00 O2 Del Method Room Air 09/08/23 06:00 Weight last 48 hrs Weight 65.544 kg Data NPU 09/04/23 14:11 09/04/23 14:11 A&P Assessment and plan (1) Suicidal ideation: (2) PTSD (post-traumatic stress disorder): (3) Major depressive disorder: (4) Anxiety: (5) Borderline personality disorder: Plan This is a 28 year old white male with post traumatic stress disorder, and history of addiction including past methamphetamine and current cannabis use known through past outpatient services whose symptoms suggest a possible diagnosis of Borderline Personality Disorder (BPD) or trauma-related issues rather than bipolar disorder. He exhibits signs of depression and anxiety, and has a history of volatile relationships and intense emotional reactions. He also has a history of trauma, which could be contributing to his current mental health issues and is currently not on medication. Plan 1. Started Prozac 20 mg p.o. daily 2. Will consider restarting previous medication. 3. Encourage individual, group and milieu therapy 4. Continue q-15 minute check for safety 5. Recommend sober living treatment at the highest level of care to which the patient is willing to commit. 6. Discussed the likelihood of discharge on Saturday. Making sure that he has appropriate follow-up appointments as well as application to Medicaid in place. Discussed working with social work team tomorrow to make sure all of those things are done. Involuntary Hold Information 2 96 Hour Hold: 96 Hour Involuntary Admission: Yes 96 Hour Hold Ending Date: 09/11/23 96 Hour Hold Ending Time: 00:01 Attestations NPU 2 Medical Necessity Statement*: Inpatient hospitalization is medically necessary and the clinically appropriate intervention at this time. We will monitor medications and make changes as indicated. Likely length of stay is 1-2 days Coding Level of Care Code Acute Code for [facility] Diagnoses Suicidal ideation R45.851 PTSD (post-traumatic stress disorder) F43.10 Major depressive disorder F32.9 Anxiety F41.9 Borderline personality disorder F60.3
[2023-09-08 14:00] VITALS: BP 133/84; PULSE 79; RESP 20; TEMP 36.6; O2SAT 99
--- NOTE | 2023-09-08 17:50 | PC.NURSE ---
STAFF PERFORMED RANDOM ROOM CHECK. NO CONTRABAND FOUND IN PT ROOM. PT WAS COOPERATIVE WITH CHECK.
[2023-09-08 20:15] VITALS: BP 134/87; PULSE 63; RESP 18; TEMP 36.8; O2SAT 96
[2023-09-09] MEDS: ibuprofen 600 mg Tablet PO (03:36)
[2023-09-09 06:00] VITALS: BP 115/66; PULSE 63; RESP 15; TEMP 36.5; O2SAT 97
[2023-09-09] MEDS: nicotine 4 mg lozenge MUCOUS MEM ×4 (06:03→13:11)
[2023-09-09] MEDS: fluoxetine 20 mg Capsule PO (07:47)
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
[2023-09-09 11:17] VITALS: BP 115/66; PULSE 63; RESP 15; TEMP 36.5; O2SAT 97
== END 2023-09-09 14:22 | disposition home or self-care (01) | DRG 881 ==
LOC: ER 14:19 → NP 14:42
PROVIDERS: Admitting Provider Psychiatry & Neurology Psychiatry; Emergency Provider Emergency Medicine; PCP Nurse Practitioner Family; Visit Provider Psychiatry & Neurology Psychiatry
DX: F32.9 Major depressive disorder, single episode, unspecified (principal); R45.851 Suicidal ideations; F43.10 Post-traumatic stress disorder, unspecified; F41.9 Anxiety disorder, unspecified; F60.3 Borderline personality disorder; Z72.0 Tobacco use; Z91.51 Personal history of suicidal behavior; F12.90 Cannabis use, unspecified, uncomplicated
CPT/HCPCS: 36415; 80053; 80306; 80307; 85025; 97150; 97165; 99285

== ENCOUNTER 2023-12-09 09:44 | Outpatient (CLI) | payer BC, MEDICAID, SELFPAY ==
--- NOTE | 2023-12-09 09:53 | XRR_ITS ---
PROCEDURE INFORMATION: Exam: XR Right Hand Exam date and time: 12/09/2023 9:58 AM Age: 28 years old Clinical indication: Pain; Hand; Bilateral; Additional info: Bilateral pain of joint of hands TECHNIQUE: Imaging protocol: Radiologic exam of the right hand. Views: 1 or 2 views. COMPARISON: No relevant prior studies available. FINDINGS: Bones/joints: No fracture or dislocation is appreciated. Joint spaces are relatively well preserved. No osteophytes are appreciated. No erosions are noted. Bony mineralization is normal. Soft tissues: Normal. XR/XR hand RT 2V [id number] IMPRESSION: 1. No acute findings.
--- NOTE | 2023-12-09 09:53 | XRR_ITS ---
PROCEDURE INFORMATION: Exam: XR Left Hand Exam date and time: 12/09/2023 9:58 AM Age: 28 years old Clinical indication: Pain; Hand; Bilateral; Additional info: Bilateral pain of joint of hands TECHNIQUE: Imaging protocol: Radiologic exam of the left hand. Views: 3 or more views. COMPARISON: No relevant prior studies available. FINDINGS: Bones/joints: No fracture or dislocation is appreciated. Joint spaces are relatively well preserved. No osteophytes are appreciated. No erosions are noted. Bony mineralization is normal. Soft tissues: Normal. XR/XR hand LT 2V [id number] IMPRESSION: No acute findings.
== END 2023-12-09 09:45 | disposition home or self-care (01) ==
PROVIDERS: PCP Family Medicine; Visit Provider Family Medicine
DX: M25.541 Pain in joints of right hand (principal); M25.542 Pain in joints of left hand
CPT/HCPCS: 73120